=== PATIENT | female | born 1950 | race Caucasian/White ===

== ENCOUNTER 2017-03-04 18:28 | Inpatient (IN) ==
[2017-03-04] MEDS ORDERED: 0.9 % Sodium Chloride 1,000 ML IVC ONE (19:35)
[2017-03-04] MEDS ORDERED: Ondansetron 4 MG/2 ML VIAL IVP ONE (19:35)
[2017-03-04] MEDS ORDERED: *HR* Morphine 2 MG/ML SYRINGE IVP ONE ×2 (19:35→20:35)
--- NOTE | 2017-03-04 19:40 | Emergency Department Note ---
Addendum entered and electronically signed by Collins Layton DO 03/04/17 23:41: Per Hospitalist rec, Will add 1 dose of 1g ceftriaxone, for empiric UTI coverage , urine to go to culture. Original Note: Disposition Clinical Impression: Intractable abdominal pain Abdominal pain Qualifiers: Abdominal location: epigastric Qualified Code(s): R10.13 - Epigastric pain Disposition: Admitted As Inpatient Condition: Fair Time of Disposition: 23:24 Abdominal Pain HPI - General Chief Complaint: ED Abdominal Pain Stated Complaint: pancreatitis Time Seen by Provider: 03/04/17 18:35 Source: patient Mode of arrival: ambulatory Limitations: no limitations Nursing Notes Reviewed: Yes Vital Signs Reviewed: Yes - History of Present Illness HPI Narrative: 67yof hx of pancreatitis, appy/cholecystectomy, with aching, pain epigastric 10 started epigastric radiating to RUQ. She has a history of chronic pancreatitis, she states that her pain is very similar to her previous episodes [place] tightest she states this is previously been secondary to elevated triglycerides, she is no history of alcoholism and currently does not drink, she also denies gallstone pancreatitis but she did previously have a cholecystectomy. Patient denies chest pain, fever, chills, weight loss, hematuria, dysuria. Pt Subjective Complaint: abdominal pain Onset (ago): hour(s) (6) Consistency: now resolved Location: epigastric Pain Severity: severe Pain Scale: 10 Quality: cramping, stabbing, aching Radiation: none Migration to: L flank, R flank Improves with: nothing Worsens with: nothing Associated symptoms: Reports: nausea. Denies: hematemesis, hematochezia - Related Data Home Medications Medication Instructions Recorded Confirmed Gabapentin 600 - 1,200 mg PO HS 07/22/15 07/22/15 NIFEdipine [Nifedical Xl] 30 mg PO HS 07/22/15 07/22/15 Pravastatin Sodium 40 mg PO HS 07/22/15 07/22/15 Trazodone HCl 150 mg PO HS 07/22/15 07/22/15 clonazePAM [Clonazepam] 0.5 mg PO HS 07/22/15 07/22/15 Previous Rx's Medication Instructions Recorded HYDROcodone/Acet 7.5/325 mg [[place] 1 tab PO Q6HR PRN #10 tablet 07/25/15 7.5-325 mg] Allergies Allergy/AdvReac Type Severity Reaction Status Date / Time No Known Allergies Allergy Verified 03/04/17 19:06 All systems ED: reviewed and negative except as stated. Constitutional: Denies: fever, chills Cardiovascular: Denies: chest pain, palpitations Respiratory: Denies: cough, dyspnea Gastrointestinal: Reports: as per HPI, abdominal pain, nausea. Denies: diarrhea , constipation, hematemesis, hematochezia Genitourinary: Denies: urgency, dysuria, hematuria, discharge Musculoskeletal: Reports: as per HPI Neurological: Denies: headache Abdominal Pain PMH - Past Medical History Medical history: Reports: hypertension, kidney stones, seizures, other Female Surgical History: Reports: appendectomy, cholecystectomy, hysterectomy, Tonsillectomy, other ROUSTABOUT CREW history: Reports: no ROUSTABOUT CREW history Psychiatric history: Reports: no psych history - Social History Smoking status: Current every day smoker Alcohol use: Reports: none Drug use: Reports: none Physical Exam Constitutional: alert and oriented, in NAD, tachycardic HEENT: NCAT, sclera anicteric Neck: normal inspection, neck is supple, trachea midline Resp: normal chest inspection, CTA bilaterally, no resp distress CV: tachy, no m/g/r GI: normal inspection,moderate epigastric ttp, no hepatosplenomegaly, previous incisions c/w appy,ginna/hysterectomy, BS x 4 quadrants, negative Dang's Sign , no tenderness at McBurney' point, Negative Rovsing's Back: normal inspection, negative CVA bilaterally, no tenderness to palpation Neuro: A&O3, no gross motor or sensory deficits bilaterally MSK: normal inspection, bilateral UE and LE with normal ROM Skin: No rashes, skin warm, dry, intact - General Limitations: no limitations General appearance: alert Course Course Narrative: 67-year-old female with epigastric abdominal pain, she says this feels like her previous episodes pancreatitis, she states that she has been having some nausea , denies emesis, patient denies any chest pain, her pain radiates to her right upper quadrant, we will give IV fluids antiemetics, check lipase [place] basic lab work troponin is at - Reevaluation(s) Reevaluation #1: After 3 rounds of morphine, unable to the patient's pain adequately under control, started IV fluid drip, 1 L of fluids given, no elevated lipase, no obvious signs of pain [place] on CT scan however the patient still has a moderately tender epigastrium, we will admit to the medicine service given that this is so closely resembling her previous episodes of pancreatitis she likely has chronic pancreatitis, we will admit IV fluids pain, antiemetics, ice chips Time: 23:26 Vital Signs Temperature 97.9 F 03/04/17 19:06 Pulse Rate 98 03/04/17 19:06 Respiratory Rate 20 03/04/17 19:06 Blood Pressure 166/96 03/04/17 19:06 O2 Sat by Pulse Oximetry 96 03/04/17 19:06 Temperature 97.9 F 03/04/17 19:06 Pulse Rate 82 03/04/17 20:42 Respiratory Rate 24 03/04/17 20:42 Blood Pressure 118/79 03/04/17 20:42 O2 Sat by Pulse Oximetry 98 03/04/17 20:42 Oxygen Delivery Oxygen Delivery Room Air Abdominal Pain - MDM Narrative Medical decision making narrative: 67-year-old female with possible pancreatitis, intractable abdominal pain epigastric, admitted to medicine service in stable condition at the time of ED disposition - Differential Diagnosis Differential Diagnosis: Likely: diverticulitis, pancreatitis - Medical Records Medical records reviewed: Yes I reviewed the patient's medical records. - Lab Data Lab results reviewed: Yes I reviewed the patient's lab results. Result diagrams: 03/04/17 19:57 03/04/17 19:57 Lab Results 03/04/17 03/04/17 03/04/17 Range/Units 19:30 19:57 19:57 WBC 9.7 (4.3-11.1) K/mcL RBC 5.05 H (3.82-4.97) M/mcL Hgb 14.5 (11.5-15.4) g/dL Hct 43.4 (35.3-44.9) % MCV 85.9 (83.0-100.0) fL MCH 28.7 (28.0-33.3) pg MCHC 33.4 (31.6-35.5) g/dL RDW 12.9 (11.5-14.5) % Plt Count 328 (140-400) K/mcL MPV 9.7 (9.4-12.4) fL Immature Gran % 0.3 (0-4) % Seg Neutrophils % 63.9 % Lymphocytes % 24.2 % Monocytes % 6.4 % Eosinophils % 4.7 % Basophils % 0.5 % Neutrophils # 6.2 (1.6-8.9) K/mcL Lymphocytes # 2.4 (0.6-4.6) K/mcL Monocytes # 0.6 (0.0-1.3) K/mcL Eosinophils # 0.5 (0.0-0.6) K/mcL Basophils # 0.1 (0.0-0.2) K/mcL Sodium 138 (136-145) mEq/L Potassium 3.7 (3.5-4.5) mEq/L Chloride 106 (98-109) mEq/L Carbon Dioxide 22 (19-29) mEq/L BUN 14 (7-20) mg/dL Creatinine 0.81 (0.57-1.11) mg/dL Est GFR ( Amer) > 60 (> 60) Est GFR (Non-Af Amer) > 60 (> 60) BUN/Creatinine Ratio 17 (6-26) Glucose 104 H (70-99) mg/dL Calculated Osmolality 287 (280-300) Calcium 9.9 (8.6-10.8) mg/dL Total Bilirubin 0.5 (0.2-1.2) mg/dL Direct Bilirubin 0.2 (0.0-0.5) mg/dL Indirect Bilirubin 0.3 (0.0-1.2) mg/dL AST 18 (5-34) Units/L ALT 12 (0-55) Units/L Alkaline Phosphatase 100 (38-126) Units/L Troponin I (0-0.03) ng/mL Serum Total Protein 7.5 (6.0-8.3) g/dL Albumin 3.7 (3.5-5.0) g/dL Globulin 3.8 H (2.4-3.5) g/dL Albumin/Globulin Ratio 1.0 L (1.1-2.2) Lipase 35 (8-78) Units/L Urine Color Dark Yellow (Yellow) Urine Clarity Cloudy A (Clear) Urine pH 6.0 (5.0-8.0) pH Units Ur Specific [place] 1.027 H (1.010-1.025) Urine Protein 30 H (Neg-Trace) mg/dL Urine Glucose (UA) Normal (Normal) mg/dL Urine Ketones 15 H (Negative) mg/dL Urine Blood Small H (Negative) Urine Nitrite Negative (Negative) Urine Bilirubin Small H (Negative) Urine Urobilinogen Normal (Normal) mg/dL Ur Leukocyte Esterase Trace H (Negative) Urine Microscopic RBC 0-3 (0-3) per hpf Urine Microscopic WBC 5-15 H (0-3) per hpf Ur Squamous Epith Cells Many H (None-Few) per lpf Calcium Oxalate Crystal Present Urine Bacteria Moderate H (None-Few) per hpf Hyaline Casts Few (None-Few) per lpf Ur Culture Indicated? YES A (NO) 03/04/17 Range/Units 19:57 WBC (4.3-11.1) K/mcL RBC (3.82-4.97) M/mcL Hgb (11.5-15.4) g/dL Hct (35.3-44.9) % MCV (83.0-100.0) fL MCH (28.0-33.3) pg MCHC (31.6-35.5) g/dL RDW (11.5-14.5) % Plt Count (140-400) K/mcL MPV (9.4-12.4) fL Immature Gran % (0-4) % Seg Neutrophils % % Lymphocytes % % Monocytes % % Eosinophils % % Basophils % % Neutrophils # (1.6-8.9) K/mcL Lymphocytes # (0.6-4.6) K/mcL Monocytes # (0.0-1.3) K/mcL Eosinophils # (0.0-0.6) K/mcL Basophils # (0.0-0.2) K/mcL Sodium (136-145) mEq/L Potassium (3.5-4.5) mEq/L Chloride (98-109) mEq/L Carbon Dioxide (19-29) mEq/L BUN (7-20) mg/dL Creatinine (0.57-1.11) mg/dL Est GFR ( Amer) (> 60) Est GFR (Non-Af Amer) (> 60) BUN/Creatinine Ratio (6-26) Glucose (70-99) mg/dL Calculated Osmolality (280-300) Calcium (8.6-10.8) mg/dL Total Bilirubin (0.2-1.2) mg/dL Direct Bilirubin (0.0-0.5) mg/dL Indirect Bilirubin (0.0-1.2) mg/dL AST (5-34) Units/L ALT (0-55) Units/L Alkaline Phosphatase (38-126) Units/L Troponin I 0.00 (0-0.03) ng/mL Serum Total Protein (6.0-8.3) g/dL Albumin (3.5-5.0) g/dL Globulin (2.4-3.5) g/dL Albumin/Globulin Ratio (1.1-2.2) Lipase (8-78) Units/L Urine Color (Yellow) Urine Clarity (Clear) Urine pH (5.0-8.0) pH Units Ur Specific [place] (1.010-1.025) Urine Protein (Neg-Trace) mg/dL Urine Glucose (UA) (Normal) mg/dL Urine Ketones (Negative) mg/dL Urine Blood (Negative) Urine Nitrite (Negative) Urine Bilirubin (Negative) Urine Urobilinogen (Normal) mg/dL Ur Leukocyte Esterase (Negative) Urine Microscopic RBC (0-3) per hpf Urine Microscopic WBC (0-3) per hpf Ur Squamous Epith Cells (None-Few) per lpf Calcium Oxalate Crystal Urine Bacteria (None-Few) per hpf Hyaline Casts (None-Few) per lpf Ur Culture Indicated? (NO) - Radiology Data Radiology results reviewed: Yes I reviewed the patient's radiology results. Abdomen/Pelvis CT 03/04/17 21:35 IMPRESSION: 1. Nonobstructing stone in the right kidney. 2. Trace right pleural effusion. D/ / Calderon Topete MD / Calderon Topete MD Interpreting Provider: Calderon Topete MD - EKG Data EKG attestation: Yes I reviewed and interpreted this EKG. EKG shows normal: sinus rhythm (97 bpm [place] 149 QRS 73 QTC [address] segment elevations or depressions,) Rate: normal Interpretation: no acute changes - Core Measures AMI Core Measures Followed: No Attestation Statement - Attestation Attestation: I examined this patient and my medical decision-making was reviewed with the Resident Physician. I agree with the documented findings, disposition and treatment plan as described except to the extent set forth below. Tender without guarding. Lipase normal, CT normal, VSS, but continued pain despite 3 doses of Morphine. Hospitalist accepts for admission.
[2017-03-04 19:46] LABS: Bilirubin,Urine Small (Negative); Blood,Urine Small (Negative); Clarity,Urine Cloudy (Clear); Color,Urine Dark Yellow (Yellow); Glucose,Urine (UA) Normal (Normal); Ketones,Urine 15 mg/dL (Negative); Leukocyte Esterase,Urine Trace (Negative); Nitrite,Urine Negative (Negative); Protein,Urine 30 mg/dL (Neg-Trace); Specific Gravity,Urine 1.027 (1.010-1.025); Urobilinogen,Urine Normal (Normal)
[2017-03-04 19:49] LABS: Bacteria,Urine Moderate per hpf (None-Few); RBC,Urine 0-3 per hpf (0-3); Squamous Epithelial Cell,Urine Many per lpf (None-Few)
[2017-03-04 19:59] LABS: Hyaline Casts,Urine Few per lpf (None-Few)
[2017-03-04 20:00] LABS: Calcium Oxalate Crystals,Urine Present
[2017-03-04 20:06] LABS: Basophils # 0.1 K/mcL (0.0-0.2); Basophils % 0.5 %; Eosinophils # 0.5 K/mcL (0.0-0.6); Eosinophils % 4.7 %; Hematocrit 43.4 % (35.3-44.9); Hemoglobin 14.5 g/dL (11.5-15.4); Immature Granulocytes % 0.3 % (0-4); Lymphocytes # 2.4 K/mcL (0.6-4.6); Lymphocytes % 24.2 %; Mean Corpuscular HGB Conc 33.4 g/dL (31.6-35.5); Mean Corpuscular Hemoglobin 28.7 pg (28.0-33.3); Mean Corpuscular Volume 85.9 fL (83.0-100.0); Mean Platelet Volume 9.7 fL (9.4-12.4); Monocytes # 0.6 K/mcL (0.0-1.3); Monocytes % 6.4 %; Neutrophils # 6.2 K/mcL (1.6-8.9); Platelet Count 328 K/mcL (140-400); Red Blood Count 5.05 M/mcL (3.82-4.97); Red Cell Distribution Width 12.9 % (11.5-14.5); Segmented Neutrophils % 63.9 %
[2017-03-04 20:26] LABS: Alanine Aminotransferase 12 Units/L (0-55); Albumin 3.7 g/dL (3.5-5.0); Alkaline Phosphatase 100 Units/L (38-126); Aspartate Amino Transferase 18 Units/L (5-34); BUN/Creatinine Ratio 17 (6-26); Bilirubin,Direct 0.2 mg/dL (0.0-0.5); Bilirubin,Indirect 0.3 mg/dL (0.0-1.2); Bilirubin,Total 0.5 mg/dL (0.2-1.2); Blood Urea Nitrogen 14 mg/dL (7-20); Calcium 9.9 mg/dL (8.6-10.8); Carbon Dioxide 22 mEq/L (19-29); Chloride 106 mEq/L (98-109); Globulin 3.8 g/dL (2.4-3.5); Glucose 104 mg/dL (70-99); Lipase 35 Units/L (8-78); Osmolality,Calculated 287 (280-300); Potassium 3.7 mEq/L (3.5-4.5); Sodium 138 mEq/L (136-145); Total Protein 7.5 g/dL (6.0-8.3); eGFR For African Americans > 60 (> 60); eGFR For Non-African Americans > 60 (> 60)
[2017-03-04] MEDS ORDERED: *HR* Morphine 2 MG/ML SYRINGE IVP STA (22:36)
[2017-03-04] MEDS: 0.9 % Sodium Chloride 1,000 ML IVC SCH (22:44)
[2017-03-05] MEDS ORDERED: Pantoprazole 40 MG VIAL IVP ONE (02:37)
[2017-03-05] MEDS ORDERED: *HR* HYDROmorphone (PF) 1 MG/ML SYRINGE IVP ONE (02:39)
[2017-03-05] MEDS ORDERED: Naloxone 0.4 MG/ML INJ IVP PRN (02:52)
--- NOTE | 2017-03-05 02:52 | Internal Med History&Physical ---
Date of Encounter: 03/05/17 Time of Encounter: 02:52 Assessment and Plan (1) Epigastric abdominal pain Current visit: Yes Status: Acute Epigastric abdominal pain - suspect gastritis. Treat with PPI. Labs and imaging do not suggest acute pancreatitis and no conclusive evidence for chronic pancreatitis (No pancreatic calcifications or atrophy reported; Pt has no h/o chronic diarrhea). Will request GI consult for further advice. Emperically treat with PPI and analgesia. NPO for now (2) UTI (urinary tract infection) Current visit: Yes Status: Suspected Empirically treated with ceftriaxone. Urine cultures pending. Titrate antibiotics based on cultures / sensitivities Qualifiers: Urinary tract infection type: site unspecified Hematuria presence: without hematuria Qualified Code(s): N39.0 - Urinary tract infection, site not specified (3) Nicotine dependence Current visit: Yes Status: Chronic Pt does not want nicotine patch Qualifiers: Nicotine product type: cigarettes Substance use status: unspecified nicotine-induced disorder Qualified Code(s): F17.219 - Nicotine dependence, cigarettes, with unspecified nicotine-induced disorders (4) HTN (hypertension) Current visit: Yes Status: Chronic Continue home medications Qualifiers: Hypertension type: essential hypertension Qualified Code(s): I10 - Essential (primary) hypertension (5) DVT prophylaxis Current visit: Yes Status: Acute SCDs Internal Medicine - H&P: HPI Chief complaint: Epigastric pain Admitted From: Emergency Dept Plans for Post Hospital Care: Home History of present illness: Ms. Dalal is a 67 year old female With h/o Hypertension, ruptured intracranial aneurysm, s/p cholecystectomy. She has a diagnosis of chronic pancreatitis (but the current imaging does not reports changes of chronic pancreatitis) and prior admissions for acute pancreatitis. She presented to the ER, with h/o sudden onset of sharp epigastric abdominal pain, starting at about 1 PM on 03/04/2017. Pain radiates to the back, severe and associated with nausea but no vomiting. She reports about 7 episodes of diarrhea, but no melena or hematochezia. She denies Chest pain, shortness of breath, Cough, fever, dysuria, hematuria. She was evaluated in the ER and CT Abdomen and pelvis showed non obstructing stone in the right kidney. Lipase was normal. UA was abnormal and was given ceftriaxone, IV fluids and admitted to the hospitalist service for further management. Past Med Surg Social Fam HX - Past Medical History Medical history: hypertension, kidney stones, seizures, other Psychiatric history: no psych history - Past Surgical History Surgical History: appendectomy, cholecystectomy, hysterectomy - Social History Smoking Status: Current every day smoker Packs per day: 0.5 Smokeless Tobacco Status: No Alcohol use: none Drug use: none - Family History Mother Living Status: Hx Family Cardiac Disorders: Yes (Heart attack) Hx Family Neurologic Disorders: Yes (Alzhmier's) Father Living Status: Unknown - Additional Family History Additional family history: Denies family h/o chronic pancreatitis Internal Medicine - H&P: Meds Gabapentin 600 - 1,200 mg PO HS 07/22/15 [History] NIFEdipine [Nifedical Xl] 30 mg PO HS 07/22/15 [History] Pravastatin Sodium 40 mg PO HS 07/22/15 [History] Trazodone HCl 150 mg PO HS 07/22/15 [History] clonazePAM [Clonazepam] 0.5 mg PO HS 07/22/15 [History] HYDROcodone/Acet 7.5/325 mg [[place] 7.5-325 mg] 1 tab PO Q6HR PRN #10 tablet 09/08 [Rx] Allergies No Known Allergies Allergy (Verified 03/04/17 19:06) All Systems PM: A 10-system review of systems was performed and is negative for pertinent findings except as documented above in the HPI. - Constitutional Vitals: Temp Pulse Resp BP Pulse Ox 98.3 F 88 15 141/69 94 03/05/17 01:04 03/05/17 01:04 03/05/17 01:04 03/05/17 01:04 03/05/17 01:04 Exam: General: In mild distress at the time of my evaluation HEENT: Oral mucosa is moist. No conjunctival palor or scleral icterus Neck: No obvious neck swellings Lungs: Clear to auscultation Cardiac: Regular rate and rhythm. No significant murmurs Abdomen: Epigastric tenderness present. Bowel sounds present Genitourinary: No ayala catheter Neurological: Alert and oriented. No gross localizing deficits Psych: Not aggressive or agitated Extremities: no significant leg edema Skin: No generalized rash Internal Med - H&P Results - Labs CBC & Chem 7: 03/04/17 19:57 03/04/17 19:57 - EKG Data -: EKG Interpreted by Myself EKG shows normal: sinus rhythm - EKG Data EKG comments: Left atrial enlargement 03/05/17 03:47 - Impressions ITS Impressions Abdomen/Pelvis CT 03/04/17 21:35 IMPRESSION: 1. Nonobstructing stone in the right kidney. 2. Trace right pleural effusion. D/ / Calderon Topete MD / Calderon Topete MD Interpreting Provider: Calderon Topete MD
[2017-03-05] MEDS ORDERED: Acetaminophen 325 MG TABLET PO PRN (02:55)
[2017-03-05] MEDS: *HR* Morphine 2 MG/ML SYRINGE IVP PRN ×3 (04:15→12:28)
[2017-03-05] MEDS: *HR* HYDROmorphone (PF) 1 MG/ML SYRINGE IVP PRN ×4 (06:15→23:04)
[2017-03-05 06:21] LABS: BUN/Creatinine Ratio 13 (6-26); Blood Urea Nitrogen 10 mg/dL (7-20); Calcium 8.8 mg/dL (8.6-10.8); Carbon Dioxide 23 mEq/L (19-29); Chloride 110 mEq/L (98-109); Chol/HDL Ratio 4.5 (0-4.9); Cholesterol 150 mg/dL (< 200); Glucose 138 mg/dL (70-99); HDL Cholesterol 33 mg/dL (40-59); LDL Cholesterol,Calculated 90 mg/dL (0-99); Osmolality,Calculated 289 (280-300); Potassium 3.7 mEq/L (3.5-4.5); Sodium 139 mEq/L (136-145); Triglycerides 137 mg/dL (< 150); eGFR For African Americans > 60 (> 60); eGFR For Non-African Americans > 60 (> 60)
[2017-03-05 06:53] LABS: Lipase 2440 Units/L (8-78)
--- NOTE | 2017-03-05 08:10 | Internal Med Progress Note ---
<Naveed Way - Last Filed: 03/05/17 09:27> Date of Encounter: 03/05/17 Time of Encounter: 08:09 - Assessment and plan (1) Acute pancreatitis Current Visit: No Status: Acute Assessment and plan: Acute Pancreatitis with elevated lipase 2440. Patient has multiple episodes of acute pancreatitis in the past. Patient reports drinking alcohol 1 week ago. Continue IV fluids and pain control. Nothing by mouth. Continue PPI. GI consulted for possible gastritis Qualifiers: Pancreatitis type: unspecified pancreatitis type Qualified Code(s): K85.90 - Acute pancreatitis without necrosis or infection, unspecified (2) Epigastric abdominal pain Current Visit: Yes Status: Acute Assessment and plan: See above. Patient denies history of hepatitis (3) UTI (urinary tract infection) Current Visit: Yes Status: Suspected Assessment and plan: Continue Rocephin (day 2) Qualifiers: Urinary tract infection type: site unspecified Hematuria presence: without hematuria Qualified Code(s): N39.0 - Urinary tract infection, site not specified (4) Nicotine dependence Current Visit: Yes Status: Chronic Assessment and plan: Discussed tobacco cessation. Patient declines nicotine patch Qualifiers: Nicotine product type: cigarettes Substance use status: unspecified nicotine-induced disorder Qualified Code(s): F17.219 - Nicotine dependence, cigarettes, with unspecified nicotine-induced disorders (5) HTN (hypertension) Current Visit: Yes Status: Chronic Assessment and plan: Continue home antihypertensive treatment Qualifiers: Hypertension type: essential hypertension Qualified Code(s): I10 - Essential (primary) hypertension (6) DVT prophylaxis Current Visit: No Status: Acute Assessment and plan: SCDs Patient seen and examined, plan discussed with and agreed upon with Dr. Kim - Subjective Interval history: Patient resting comfortably in bed. Patient reports 9 out of 10 severity epigastric pain despite taking Dilaudid and morphine. Nausea is controlled. Patient denies fevers, chills, chest pain, vomiting, diarrhea, or any new complaints. - Constitutional Vitals: Temp Pulse Resp BP Pulse Ox 97.9 F 80 13 146/69 94 03/05/17 07:54 03/05/17 07:54 03/05/17 07:54 03/05/17 07:54 03/05/17 07:54 General appearance: Present: cooperative, disheveled, mild distress, A&O X 3, pleasant, answers questions appropriately - Head Head exam: Present: atraumatic, normocephalic - Eye Eye exam: Present: PERRL, conjuntiva pink, sclera anicteric Pupils: Present: PERRL - ENT ENT exam: Present: mucous membranes moist, normal oropharynx - Neck Neck exam general surgery: Present: supple, trachea midline. Absent: lymphadenopathy - Respiratory Respiratory exam: Present: wheezes (Mild expiratory). Absent: accessory muscle use, rales, respiratory distress, rhonchi - Cardiovascular Cardiovascular exam: Present: RRR, +S1, +S2. Absent: diastolic murmur, gallop, rubs, systolic murmur - GI/Abdominal GI/Abdominal exam: Present: guarding, normal bowel sounds, soft, tenderness, no peritoneal signs. Absent: distended, rebound Additional comments: Moderate epigastric tenderness with light and deep palpation. Positive voluntary guarding - Extremities Exam Extremities exam: Present: warm, radial pulses palpable and symetrical. Absent : calf tenderness, cyanotic, pedal edema - Neurological Exam Neurological exam: Present: CN II-XII intact, oriented X3, no focal deficits. Absent: pronater drift, facial droop, speech deficit - Psychiatric Psychiatric exam: Present: anxious, normal mood - Skin Skin exam: Present: dry, intact, pallor, warm. Absent: rash Internal Medicine: Result - Labs CBC & Chem 7: 03/04/17 19:57 03/05/17 05:52 Labs: BMP 03/05/17 05:52 Sodium 139 Potassium 3.7 Chloride 110 H Carbon Dioxide 23 BUN 10 Creatinine 0.77 Glucose 138 H Calcium 8.8 Consult Discharge Plan - Plan Referrals: Nanette Jacobson MD [Primary Care Provider] - (web request sent on 03/05/17) <Gilbert Hickman H - Last Filed: 03/05/17 13:40> Date of Encounter: 03/05/17 - Constitutional Vitals: Temp Pulse Resp BP Pulse Ox 98.0 F 71 18 137/66 96 03/05/17 10:49 03/05/17 10:49 03/05/17 10:49 03/05/17 10:49 03/05/17 10:49 Internal Medicine: Result - Labs CBC & Chem 7: 03/05/17 11:47 03/05/17 05:52 Labs: Short CBC 03/05/17 Range/Units 11:47 WBC 8.5 (4.3-11.1) K/mcL Hgb 12.3 D (11.5-15.4) g/dL Hct 36.0 (35.3-44.9) % Plt Count 267 (140-400) K/mcL Neutrophils # 5.9 (1.6-8.9) K/mcL BMP 03/05/17 05:52 Sodium 139 Potassium 3.7 Chloride 110 H Carbon Dioxide 23 BUN 10 Creatinine 0.77 Glucose 138 H Calcium 8.8 - Attending Attestation Acute pancreatitis unknown etiology Increase IV fluids to 200 mL/h, increased dose of Dilaudid IV Discontinue lisinopril Keep nothing by mouth Discontinue Rocephin, the patient is not having any urinary symptoms I examined this patient and my medical decision-making was reviewed with the [employer] TECHNICIAN/PA/Advanced Practice Nurse/Resident Physician. I agree with the documented findings, disposition and treatment plan as described except to the extent set forth below.
[2017-03-05] MEDS: Gabapentin 300 MG CAPSULE PO SCH ×2 (09:23→20:57)
[2017-03-05] MEDS: Pantoprazole 40 MG VIAL IVP SCH (09:23)
[2017-03-05] MEDS: 0.9 % Sodium Chloride 1,000 ML IVC SCH ×3 (10:26→23:01)
--- NOTE | 2017-03-05 11:37 | Electrocardiograph Report ---
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
[2017-03-05 12:24] LABS: Basophils % 0.2 %; Eosinophils # 0.1 K/mcL (0.0-0.6); Eosinophils % 1.5 %; Immature Granulocytes % 0.2 % (0-4); Lymphocytes # 1.9 K/mcL (0.6-4.6); Lymphocytes % 21.7 %; Mean Corpuscular HGB Conc 34.2 g/dL (31.6-35.5); Mean Corpuscular Hemoglobin 29.8 pg (28.0-33.3); Mean Corpuscular Volume 87.2 fL (83.0-100.0); Mean Platelet Volume 10.8 fL (9.4-12.4); Monocytes # 0.6 K/mcL (0.0-1.3); Monocytes % 6.7 %; Neutrophils # 5.9 K/mcL (1.6-8.9); Platelet Count 267 K/mcL (140-400); Red Blood Count 4.13 M/mcL (3.82-4.97); Red Cell Distribution Width 12.9 % (11.5-14.5); Segmented Neutrophils % 69.7 %
[2017-03-05 12:25] LABS: Hemoglobin 12.3 g/dL (11.5-15.4)
[2017-03-05] MEDS ORDERED: 0.9 % Sodium Chloride 1,000 ML IVC SCH (13:30)
[2017-03-05] MEDS ORDERED: Ondansetron 4 MG/2 ML VIAL ONE (18:27)
[2017-03-05] MEDS: clonazePAM 0.5 MG TABLET PO SCH (20:57)
[2017-03-05] MEDS: traZODone 50 MG TABLET PO SCH (20:58)
[2017-03-05] MEDS: NIFEdipine XL (24 HR) 30 MG TAB.ER.24 PO SCH (20:58)
[2017-03-06 06:34] LABS: Basophils % 0.5 %; Eosinophils # 0.3 K/mcL (0.0-0.6); Eosinophils % 3.1 %; Hemoglobin 13.1 g/dL (11.5-15.4); Immature Granulocytes % 0.2 % (0-4); Lymphocytes # 1.6 K/mcL (0.6-4.6); Lymphocytes % 19.4 %; Mean Corpuscular Hemoglobin 28.6 pg (28.0-33.3); Mean Corpuscular Volume 89.5 fL (83.0-100.0); Mean Platelet Volume 11.6 fL (9.4-12.4); Monocytes # 0.4 K/mcL (0.0-1.3); Monocytes % 5.3 %; Neutrophils # 5.8 K/mcL (1.6-8.9); Platelet Count 272 K/mcL (140-400); Red Blood Count 4.58 M/mcL (3.82-4.97); Red Cell Distribution Width 12.8 % (11.5-14.5); Segmented Neutrophils % 71.5 %
[2017-03-06 06:49] LABS: BUN/Creatinine Ratio 9 (6-26); Blood Urea Nitrogen 6 mg/dL (7-20); Calcium 8.5 mg/dL (8.6-10.8); Carbon Dioxide 16 mEq/L (19-29); Chloride 111 mEq/L (98-109); Glucose 64 mg/dL (70-99); Osmolality,Calculated 284 (280-300); Potassium 3.3 mEq/L (3.5-4.5); Sodium 139 mEq/L (136-145); eGFR For African Americans > 60 (> 60); eGFR For Non-African Americans > 60 (> 60)
--- NOTE | 2017-03-06 08:55 | Internal Med Progress Note ---
<Naveed Way - Last Filed: 03/06/17 08:53> Date of Encounter: 03/06/17 Time of Encounter: 08:53 - Assessment and plan (1) Acute pancreatitis Current Visit: No Status: Acute Assessment and plan: Unknown etiology of Acute Pancreatitis with elevated lipase 2440. Patient has multiple episodes of acute pancreatitis in the past. Patient reports drinking alcohol 1 week ago. Continue IV fluids and pain control. Advance diet to clear liquids. Continue Dilaudid and morphine when necessary for pain. Continue PPI. Discontinue lisinopril Qualifiers: Pancreatitis type: unspecified pancreatitis type Qualified Code(s): K85.90 - Acute pancreatitis without necrosis or infection, unspecified (2) Epigastric abdominal pain Current Visit: Yes Status: Acute Assessment and plan: See above. Patient denies history of hepatitis (3) Nicotine dependence Current Visit: Yes Status: Chronic Qualifiers: Nicotine product type: cigarettes Substance use status: unspecified nicotine-induced disorder Qualified Code(s): F17.219 - Nicotine dependence, cigarettes, with unspecified nicotine-induced disorders (4) HTN (hypertension) Current Visit: Yes Status: Chronic Assessment and plan: Discontinue lisinopril secondary to recurrent pancreatitis. Continue nifedipine Qualifiers: Hypertension type: essential hypertension Qualified Code(s): I10 - Essential (primary) hypertension (5) DVT prophylaxis Current Visit: No Status: Acute Assessment and plan: SCDs Patient seen and examined, plan discussed with and agreed upon with Dr. Kim - Subjective Interval history: Patient resting comfortably in bed. Patient reports 3 out of 10 severity epigastric pain on Dilaudid and morphine. Nausea is controlled. Patient request advancing diet and denies fevers, chills, chest pain, active vomiting, diarrhea, or any new complaints. - Constitutional Vitals: Temp Pulse Resp BP Pulse Ox 97.9 F 99 14 127/71 95 03/06/17 07:14 03/06/17 07:14 03/06/17 07:14 03/06/17 07:14 03/06/17 07:14 General appearance: Present: cooperative, disheveled, mild distress, A&O X 3, pleasant, answers questions appropriately Exam: Afebrile - Head Head exam: Present: atraumatic, normocephalic - Eye Eye exam: Present: PERRL, conjuntiva pink, sclera anicteric Pupils: Present: PERRL - ENT ENT exam: Present: mucous membranes dry, normal oropharynx - Neck Neck exam general surgery: Present: supple, trachea midline. Absent: lymphadenopathy - Respiratory Respiratory exam: Present: CTAB. Absent: accessory muscle use, rales, rhonchi, wheezes - Cardiovascular Cardiovascular exam: Present: RRR, +S1, +S2. Absent: diastolic murmur, gallop, rubs, systolic murmur - GI/Abdominal GI/Abdominal exam: Present: guarding (Voluntary), normal bowel sounds, soft, tenderness (Epigastric), no peritoneal signs. Absent: distended - Extremities Exam Extremities exam: Present: normal inspection, warm, radial pulses palpable and symetrical. Absent: calf tenderness, cyanotic, pedal edema - Neurological Exam Neurological exam: Present: CN II-XII intact, oriented X3, no focal deficits. Absent: pronater drift, facial droop, speech deficit - Psychiatric Psychiatric exam: Present: normal affect, normal mood - Skin Skin exam: Present: dry, intact Internal Medicine: Result - Labs CBC & Chem 7: 03/06/17 04:13 03/06/17 04:13 Consult Discharge Plan - Plan Referrals: Nanette Jacobson MD [Primary Care Provider] - (web request sent on 03/05/17) <Gilbert Hickman Jorge - Last Filed: 03/06/17 11:55> Date of Encounter: 03/06/17 - Constitutional Vitals: Temp Pulse Resp BP Pulse Ox 98.9 F 99 16 135/66 94 03/06/17 11:29 03/06/17 11:29 03/06/17 11:29 03/06/17 11:29 03/06/17 11:29 Internal Medicine: Result - Labs CBC & Chem 7: 03/06/17 04:13 03/06/17 04:13 - Attending Attestation Start clear liquids today, decreased IV fluids to 100 mL of normal saline per hour May advance her diet to full liquids later if continues to improve I examined this patient and my medical decision-making was reviewed with the AUTOMATED WEAVER/PA/Advanced Practice Nurse/Resident Physician. I agree with the documented findings, disposition and treatment plan as described except to the extent set forth below.
[2017-03-06] MEDS: Gabapentin 300 MG CAPSULE PO SCH ×2 (09:10→21:08)
[2017-03-06] MEDS: Ondansetron 4 MG/2 ML VIAL IVP PRN ×3 (09:11→21:04)
[2017-03-06] MEDS: Pantoprazole 40 MG VIAL IVP SCH (09:11)
[2017-03-06] MEDS: 0.9 % Sodium Chloride 1,000 ML IVC SCH ×2 (09:27→23:54)
[2017-03-06] MEDS ORDERED: *HR* Promethazine 25 MG/ML VIAL IVP PRN (11:55)
[2017-03-06] MEDS: *HR* HYDROmorphone (PF) 1 MG/ML SYRINGE IVP PRN ×3 (12:26→21:06)
[2017-03-06 14:57] LABS: Lipase 80 Units/L (8-78); Magnesium 1.5 mg/dL (1.6-2.6)
[2017-03-06] MEDS ORDERED: Magnesium Sulfate 2 GM in D5% in Water 100 ML IVPB ONE (16:46)
[2017-03-06] MEDS: clonazePAM 0.5 MG TABLET PO SCH (21:08)
[2017-03-06] MEDS: NIFEdipine XL (24 HR) 30 MG TAB.ER.24 PO SCH (21:08)
[2017-03-06] MEDS: traZODone 50 MG TABLET PO SCH (21:08)
[2017-03-07] MEDS: *HR* HYDROmorphone (PF) 1 MG/ML SYRINGE IVP PRN ×2 (05:10→10:23)
[2017-03-07] MEDS: Ondansetron 4 MG/2 ML VIAL IVP PRN ×2 (05:10→10:23)
[2017-03-07 06:46] LABS: Hematocrit 36.3 % (35.3-44.9); Hemoglobin 12.4 g/dL (11.5-15.4); Mean Corpuscular HGB Conc 34.2 g/dL (31.6-35.5); Mean Corpuscular Hemoglobin 29.7 pg (28.0-33.3); Mean Corpuscular Volume 86.8 fL (83.0-100.0); Mean Platelet Volume 10.8 fL (9.4-12.4); Platelet Count 272 K/mcL (140-400); Red Blood Count 4.18 M/mcL (3.82-4.97); Red Cell Distribution Width 12.6 % (11.5-14.5)
[2017-03-07 06:48] LABS: Carbon Dioxide 24 mEq/L (19-29); Chloride 105 mEq/L (98-109); Potassium 3.2 mEq/L (3.5-4.5); Sodium 137 mEq/L (136-145)
[2017-03-07 06:49] LABS: Alanine Aminotransferase 75 Units/L (0-55); Albumin/Globulin Ratio 0.9 (1.1-2.2); Alkaline Phosphatase 122 Units/L (38-126); Aspartate Amino Transferase 39 Units/L (5-34); BUN/Creatinine Ratio 5 (6-26); Bilirubin,Total 0.6 mg/dL (0.2-1.2); Calcium 8.3 mg/dL (8.6-10.8); Globulin 3.3 g/dL (2.4-3.5); Glucose 98 mg/dL (70-99); Osmolality,Calculated 281 (280-300); Total Protein 6.2 g/dL (6.0-8.3); eGFR For African Americans > 60 (> 60); eGFR For Non-African Americans > 60 (> 60)
[2017-03-07 06:50] LABS: Albumin 2.9 g/dL (3.5-5.0); Blood Urea Nitrogen 3 mg/dL (7-20)
--- NOTE | 2017-03-07 08:19 | Internal Med Progress Note ---
<Naveed Way - Last Filed: 03/07/17 13:47> Date of Encounter: 03/07/17 Time of Encounter: 08:19 - Assessment and plan (1) Acute pancreatitis Current Visit: No Status: Acute Assessment and plan: Unknown etiology of Acute Pancreatitis, decreased lipase from 2440 to 80. Patient has multiple episodes of acute pancreatitis in the past. Patient reports drinking alcohol 1 week ago. Continue IV fluids and pain control. Patient tolerating clear liquids. Advance diet to full liquids. Continue Dilaudid and morphine when necessary for pain. Continue PPI. Discontinued lisinopril Qualifiers: Pancreatitis type: unspecified pancreatitis type Qualified Code(s): K85.90 - Acute pancreatitis without necrosis or infection, unspecified (2) Epigastric abdominal pain Current Visit: Yes Status: Acute Assessment and plan: See above. May need repeat CT scan if symptoms worsen to rule out pancreatic necrosis. Patient denies history of hepatitis (3) Nicotine dependence Current Visit: Yes Status: Chronic Assessment and plan: Discussed tobacco cessation. Patient declines nicotine patch Qualifiers: Nicotine product type: cigarettes Substance use status: unspecified nicotine-induced disorder Qualified Code(s): F17.219 - Nicotine dependence, cigarettes, with unspecified nicotine-induced disorders (4) HTN (hypertension) Current Visit: Yes Status: Chronic Assessment and plan: Discontinue lisinopril secondary to recurrent pancreatitis. Continue nifedipine Qualifiers: Hypertension type: essential hypertension Qualified Code(s): I10 - Essential (primary) hypertension (5) DVT prophylaxis Current Visit: No Status: Acute Assessment and plan: SCDs. Encourage ambulation. Patient seen and examined, plan discussed with and agreed upon with Dr. Crane - Subjective Interval history: Patient resting comfortably in bed. Patient reports 3 out of 10 severity epigastric pain on Dilaudid and morphine. Nausea is controlled and patient requests advancing diet for liquids. Patient denies fevers, chills, chest pain , vomiting, diarrhea, or any new complaints. - Constitutional Vitals: Temp Pulse Resp BP Pulse Ox 98.6 F 82 13 115/65 94 03/07/17 07:32 03/07/17 07:32 03/07/17 07:32 03/07/17 07:32 03/07/17 07:32 General appearance: Present: cooperative, disheveled, mild distress, A&O X 3, pleasant, answers questions appropriately - Head Head exam: Present: atraumatic, normocephalic - Eye Eye exam: Present: PERRL, conjuntiva pink, sclera anicteric Pupils: Present: PERRL - ENT ENT exam: Present: mucous membranes moist, normal oropharynx - Neck Neck exam general surgery: Present: supple, trachea midline. Absent: lymphadenopathy - Respiratory Respiratory exam: Present: CTAB. Absent: accessory muscle use, rales, rhonchi, wheezes - Cardiovascular Cardiovascular exam: Present: RRR, +S1, +S2. Absent: diastolic murmur, gallop, rubs, systolic murmur - GI/Abdominal GI/Abdominal exam: Present: guarding (Voluntary), normal bowel sounds, soft, tenderness, no peritoneal signs. Absent: distended Additional comments: Epigastric - Extremities Exam Extremities exam: Present: warm, radial pulses palpable and symetrical. Absent : calf tenderness, cyanotic, pedal edema - Neurological Exam Neurological exam: Present: CN II-XII intact, oriented X3, no focal deficits. Absent: pronater drift, facial droop, speech deficit - Psychiatric Psychiatric exam: Present: normal affect, normal mood - Skin Skin exam: Present: dry, intact, warm Internal Medicine: Result - Labs CBC & Chem 7: 03/07/17 06:04 03/07/17 06:04 Labs: Short CBC 03/07/17 Range/Units 06:04 WBC 7.8 (4.3-11.1) K/mcL Hgb 12.4 (11.5-15.4) g/dL Hct 36.3 (35.3-44.9) % Plt Count 272 (140-400) K/mcL BMP 03/07/17 06:04 Sodium 137 Potassium 3.2 L Chloride 105 Carbon Dioxide 24 BUN 3 L Creatinine 0.64 Glucose 98 Calcium 8.3 L Liver Function 03/07/17 Range/Units 06:04 Total Bilirubin 0.6 (0.2-1.2) mg/dL AST 39 H (5-34) Units/L ALT 75 H (0-55) Units/L Alkaline Phosphatase 122 (38-126) Units/L Albumin 2.9 L D (3.5-5.0) g/dL Consult Discharge Plan - Plan Referrals: Nanette Jacobson MD [Primary Care Provider] - 03/11/17 10:30 am (web request sent on 03/05/17) <Carlton Crane Dhruv - Last Filed: 03/07/17 18:05> Date of Encounter: 03/07/17 - Assessment and plan (1) Pancreatitis Current Visit: No Status: Suspected Assessment and plan: Presumed due to Lisinopril which has been stopped. Qualifiers: Chronicity: acute Pancreatitis type: drug induced Acute pancreatitis complication: no infection or necrosis Qualified Code(s): K85.30 - Drug induced acute pancreatitis without necrosis or infection (2) Epigastric abdominal pain Current Visit: Yes Status: Acute (3) HTN (hypertension) Current Visit: Yes Status: Chronic Qualifiers: Hypertension type: essential hypertension Qualified Code(s): I10 - Essential (primary) hypertension (4) Hypokalemia Current Visit: No Status: Acute Assessment and plan: Replete today. (5) Nicotine dependence Current Visit: Yes Status: Chronic Qualifiers: Nicotine product type: cigarettes Substance use status: unspecified nicotine-induced disorder Qualified Code(s): F17.219 - Nicotine dependence, cigarettes, with unspecified nicotine-induced disorders - Constitutional Vitals: Temp Pulse Resp BP Pulse Ox 99.2 F 80 17 132/79 94 03/07/17 16:35 03/07/17 16:35 03/07/17 16:35 03/07/17 16:35 03/07/17 16:35 Internal Medicine: Result - Labs CBC & Chem 7: 03/07/17 06:04 03/07/17 06:04 Labs: Short CBC 03/07/17 Range/Units 06:04 WBC 7.8 (4.3-11.1) K/mcL Hgb 12.4 (11.5-15.4) g/dL Hct 36.3 (35.3-44.9) % Plt Count 272 (140-400) K/mcL BMP 03/07/17 06:04 Sodium 137 Potassium 3.2 L Chloride 105 Carbon Dioxide 24 BUN 3 L Creatinine 0.64 Glucose 98 Calcium 8.3 L Liver Function 03/07/17 Range/Units 06:04 Total Bilirubin 0.6 (0.2-1.2) mg/dL AST 39 H (5-34) Units/L ALT 75 H (0-55) Units/L Alkaline Phosphatase 122 (38-126) Units/L Albumin 2.9 L D (3.5-5.0) g/dL - Attending Attestation I examined this patient and my medical decision-making was reviewed with the Resident Physician on 03/07/17. I agree with the documented findings, disposition and treatment plan as described except to the extent set forth below. Ms. Dalal is currently admitted for acute pancreatitis. She remains moderate to high risk due to potential for worsening clinical status and pancreatic complications. Ms. Dalal was up walking some earlier today. She also had a shower. She has had some recurrence of some R side pain when up and moving. No fever or chills. Tolerating current diet. No diarrhea. Pain is controlled at this point in time. Exam Alert. Comfortable resting in bed Mucus membranes moist Heart reg - not tachy Lungs clear Abd with some discomfort R upper abdomen - no peritoneal signs. No edema Labs reviewed I/P 1. Acute pancreatitis - slowly improving. Continue pain control. Advance diet. Increase activity. 2. HTN 3. Tobacco abuse - cessation counselling. Further diagnoses and plan as above BP appears to be OK without Lisinopril. ? if cause of pancreatitis.
[2017-03-07] MEDS: Gabapentin 300 MG CAPSULE PO SCH ×2 (08:53→21:08)
[2017-03-07] MEDS: Pantoprazole 40 MG VIAL IVP SCH (08:54)
[2017-03-07 08:57] LABS: Magnesium 1.6 mg/dL (1.6-2.6)
[2017-03-07] MEDS ORDERED: Magnesium Sulfate 1 GM in D5% in Water 100 ML IVPB ONE (09:44)
[2017-03-07] MEDS: 0.9 % Sodium Chloride 1,000 ML IVC SCH (10:30)
[2017-03-07] MEDS: traZODone 50 MG TABLET PO SCH (21:07)
[2017-03-07] MEDS: NIFEdipine XL (24 HR) 30 MG TAB.ER.24 PO SCH (21:08)
[2017-03-07] MEDS: clonazePAM 0.5 MG TABLET PO SCH (21:08)
[2017-03-08] MEDS: 0.9 % Sodium Chloride 1,000 ML IVC SCH (01:09)
[2017-03-08 07:36] LABS: Alanine Aminotransferase 60 Units/L (0-55); Albumin/Globulin Ratio 0.7 (1.1-2.2); Alkaline Phosphatase 124 Units/L (38-126); BUN/Creatinine Ratio 3 (6-26); Bilirubin,Total 0.6 mg/dL (0.2-1.2); Calcium 8.9 mg/dL (8.6-10.8); Carbon Dioxide 27 mEq/L (19-29); Chloride 104 mEq/L (98-109); Globulin 4.1 g/dL (2.4-3.5); Glucose 88 mg/dL (70-99); Osmolality,Calculated 286 (280-300); Potassium 3.7 mEq/L (3.5-4.5); Sodium 140 mEq/L (136-145); Total Protein 7.1 g/dL (6.0-8.3); eGFR For African Americans > 60 (> 60); eGFR For Non-African Americans > 60 (> 60)
[2017-03-08 07:37] LABS: Hematocrit 40.6 % (35.3-44.9); Hemoglobin 13.9 g/dL (11.5-15.4); Mean Corpuscular HGB Conc 34.2 g/dL (31.6-35.5); Mean Corpuscular Hemoglobin 29.3 pg (28.0-33.3); Mean Corpuscular Volume 85.7 fL (83.0-100.0); Mean Platelet Volume 10.6 fL (9.4-12.4); Platelet Count 257 K/mcL (140-400); Red Blood Count 4.74 M/mcL (3.82-4.97); Red Cell Distribution Width 12.5 % (11.5-14.5)
[2017-03-08 07:56] LABS: Aspartate Amino Transferase 34 Units/L (5-34); Blood Urea Nitrogen 2 mg/dL (7-20); Magnesium 2.1 mg/dL (1.6-2.6)
--- NOTE | 2017-03-08 08:23 | Discharge Summary ---
<Naveed Way - Last Filed: 03/08/17 15:06> Date of Encounter: 03/08/17 Time of Encounter: 08:21 - Discharge Diagnosis (1) Acute pancreatitis Priority: Primary Status: Acute Comments: Unknown etiology of Acute Pancreatitis, decreased lipase from 2440 to 80. Patient has multiple episodes of acute pancreatitis in the past. Patient reports drinking alcohol 1 week ago. Continue IV fluids and pain control. Continue Dilaudid and morphine when necessary for pain. Continue PPI. Discontinued lisinopril. Tolerating regular diet. D/c to [facility] with outpatient follow-up. Percocet Rx prn pain. Qualifiers: Pancreatitis type: unspecified pancreatitis type (2) Epigastric abdominal pain Priority: Primary Status: Acute Comments: See above. May need repeat CT scan if symptoms worsen to rule out pancreatic necrosis. Patient denies history of hepatitis (3) Hypokalemia Priority: Primary Status: Resolved (4) Nicotine dependence Priority: Primary Status: Chronic Comments: Discussed tobacco cessation. Patient declines nicotine patch Qualifiers: Nicotine product type: cigarettes Substance use status: unspecified nicotine-induced disorder Qualified Code(s): F17.219 - Nicotine dependence, cigarettes, with unspecified nicotine-induced disorders (5) HTN (hypertension) Priority: Secondary Status: Chronic Comments: Discontinue lisinopril secondary to recurrent pancreatitis. Continue nifedipine Qualifiers: Hypertension type: essential hypertension Qualified Code(s): I10 - Essential (primary) hypertension (6) DVT prophylaxis Priority: Primary Status: Acute Comments: SCDs. Encourage ambulation. Patient seen and examined, plan discussed with and agreed upon with Dr. Crane - Discharge Medications Prescriptions: Oxycodone HCl/Acetaminophen [Percocet 5-325 mg Tablet] 1 each PO Q6H PRN #30 tablet PRN Reason: Pain Home Medications: Gabapentin 600 mg PO BID 07/22/15 [History] NIFEdipine [Nifedical Xl] 30 mg PO HS 07/22/15 [History] Pravastatin Sodium 80 mg PO HS 07/22/15 [History] Trazodone HCl 150 mg PO HS 07/22/15 [History] clonazePAM [Clonazepam] 0.5 mg PO HS 07/22/15 [History] Ibuprofen [Motrin] 200 - 600 mg PO Q6HR PRN 03/05/17 [History] Oxycodone HCl/Acetaminophen [Percocet 5-325 mg Tablet] 1 each PO Q6H PRN #30 tablet 03/08/17 [Rx] Allergies/Adverse Reactions: Allergies No Known Allergies Allergy (Verified 03/04/17 19:06) Date of admission: 03/06/17 06:14 Primary care physician: Nanette Jacobson, Discharging clinician: Carlton Crane Anticipated date of discharge: 03/08/17 - Patient Status Disposition: Home, Self-Care Condition: Good Functional capacity at discharge: independent ambulation Overall status at discharge: patient is back to baseline - Discharge Instructions Instructions: Pancreatitis (DC), Chronic Hypertension (DC) Follow Up With: Nanette Jacobson MD [Primary Care Provider] - 03/11/17 10:30 am (web request sent on 03/05/17) Additional Instructions: Stop taking Lisinopril. Stop smoking. Follow up with PCP in 1 week. - Diet and Activity Activity: increase activity as tolerated Diet: regular diet Hospital course: Ms. Dalal is a 67 year old female with past medical history of Hypertension, ruptured intracranial aneurysm, s/p cholecystectomy. She has a diagnosis of chronic pancreatitis (but the current imaging does not report changes of chronic pancreatitis) and multiple episodes of acute pancreatitis in the past. Patient reports drinking alcohol 1 week ago. She presented to the ER, with h/o sudden onset of sharp epigastric abdominal pain, starting at about 1 PM on 2016. Pain radiates to the back, severe and associated with nausea but no vomiting. She reports about 7 episodes of diarrhea, but no melena or hematochezia. CT Abdomen and pelvis showed non obstructing stone in the right kidney. Lipase was initially normal. UA was abnormal and was given ceftriaxone, IV fluids, and admitted to the hospitalist service for further management. Repeat lipase was 2440 on morning labs and IVF were increased to 200cc hour. Patient denied urinary symptoms and Rocephin was discontinued. She continued to improved during the hospital course and lipase decreased to 80. Her pain level was controlled with Dilaudid and Morphine and Lisinopril was discontinued due to uncertain etiology of chronic pancreatitis. Pt was tolerating PO intake by Hospital day 3 and was encouraged to follow up with PCP upon discharge. Time spent discussing smoking cessation with patient: 3 to 10 minutes - Time Spent with Patient Total time spent providing and/or coordinating discharge services: - Constitutional Vitals: Temp Pulse Resp BP Pulse Ox 98.3 F 90 18 124/75 94 03/08/17 07:06 03/08/17 07:06 03/08/17 07:06 03/08/17 07:06 03/08/17 07:06 General appearance: Present: cooperative, disheveled, mild distress, A&O X 3, pleasant, answers questions appropriately - Head Head exam: Present: atraumatic, normocephalic - Eye Eye exam: Present: PERRL, conjuntiva pink, sclera anicteric Pupils: Present: PERRL - ENT ENT exam: Present: mucous membranes moist, normal oropharynx - Neck Neck exam general surgery: Present: supple, trachea midline. Absent: lymphadenopathy - Respiratory Respiratory exam: Present: CTAB. Absent: accessory muscle use, rales, rhonchi, wheezes - Cardiovascular Cardiovascular exam: Present: RRR, +S1, +S2. Absent: diastolic murmur, gallop, rubs, systolic murmur - GI/Abdominal GI/Abdominal exam: Present: guarding (voluntary), normal bowel sounds, soft, tenderness (epigastric), no peritoneal signs. Absent: distended - Extremities Exam Extremities exam: Present: warm, radial pulses palpable and symetrical. Absent : calf tenderness, cyanotic, pedal edema - Neurological Exam Neurological exam: Present: CN II-XII intact, oriented X3, no focal deficits. Absent: pronater drift, facial droop, speech deficit - Psychiatric Psychiatric exam: Present: normal affect, normal mood - Skin Skin exam: Present: dry, intact, warm <Carlton Crane - Last Filed: 03/08/17 17:27> Date of Encounter: 03/08/17 - Discharge Diagnosis (1) Pancreatitis Status: Suspected Qualifiers: Chronicity: acute Pancreatitis type: drug induced Acute pancreatitis complication: no infection or necrosis Qualified Code(s): K85.30 - Drug induced acute pancreatitis without necrosis or infection (2) Epigastric abdominal pain Status: Acute (3) HTN (hypertension) Status: Chronic Qualifiers: Hypertension type: essential hypertension Qualified Code(s): I10 - Essential (primary) hypertension (4) Hypokalemia Status: Resolved (5) Nicotine dependence Status: Chronic Qualifiers: Nicotine product type: cigarettes Substance use status: unspecified nicotine-induced disorder Qualified Code(s): F17.219 - Nicotine dependence, cigarettes, with unspecified nicotine-induced disorders Date of admission: 03/06/17 06:14 Primary care physician: Nanette Jacobson, Hospital course: Ms. Dalal is a 67 year old female - Time Spent with Patient Total time spent providing and/or coordinating discharge services: - Constitutional Vitals: Temp Pulse Resp BP Pulse Ox 98.4 F 88 18 111/66 95 03/08/17 10:33 03/08/17 10:33 03/08/17 10:33 03/08/17 10:33 03/08/17 10:33 - Attending Attestation I examined this patient and my medical decision-making was reviewed with the Resident Physician on 03/08/17. I agree with the documented findings, disposition and treatment plan as described except to the extent set forth below. Ms. Dalal has been admitted for acute pancreatitis concerning due to Lisinopril. She has improved and feels ready to go home. Tolerating diet. Wants some pain med to take if needed (doesn't want to come back to ED if not needed). No fever and vitals stable. Exam Alert. Comfortable Heart reg No wheeze Abd nontender now Plan D/C home today Percocet for pain Followup with PCP for further issues Hold Lisinopril.
[2017-03-08] MEDS: Gabapentin 300 MG CAPSULE PO SCH (08:29)
[2017-03-08] MEDS: Pantoprazole 40 MG VIAL IVP SCH (08:29)
[2017-03-08 10:35] VITALS: BP 111/66
== END 2017-03-08 12:35 | disposition home or self-care (01) | DRG 439 ==
LOC: 2ANU 18:28 → EMEROO 18:28 → SUATTDRO 23:41 → 2ANU 03-05 00:05 → SUATTDRO 03-06 06:14
PROVIDERS: ADMIT Internal Medicine; ATTEND Internal Medicine

== ENCOUNTER 2018-11-30 10:51 | Inpatient (IN) ==
[2018-11-30] MEDS ORDERED: Ipratropium/Albuterol Neb 3 ML IH ONE (11:19)
--- NOTE | 2018-11-30 11:47 | Emergency Department Note ---
Disposition Clinical Impression: Sepsis Pneumonia Qualifiers: Pneumonia type: due to unspecified organism Laterality: right Lung location: lower lobe of lung Qualified Code(s): J18.1 - Lobar pneumonia, unspecified [facility] Disposition: Admitted As Inpatient Condition: Fair General Adult HPI - General Chief complaint: ED Fever Stated complaint: Possible pnuemonia Time Seen by Provider: 11/30/18 11:04 Source: patient, family Limitations: no limitations Nursing Notes Reviewed: Yes Vital Signs Reviewed: Yes - History of Present Illness HPI Narrative: Patient's a 68-year-old female who presents the emergency department with complaints of fever, cough and shortness of breath since this morning. The patient states she believes she has pneumonia as she had this 5-6 years ago and this feels similar. She states she has had subjective fever at home but has not taking anything today. She notes intermittent posttussive emesis. She has had decreased appetite but denies any nausea, diarrhea, abdominal pain, dysuria, hematuria. She denies any history of COPD but does smoke daily. Denies any sick contacts. Pain Scale: 5 - Related Data Home Medications Medication Instructions Recorded Confirmed RX: Trazodone HCl 150 mg PO HS 07/22/15 11/30/18 RX: Ibuprofen [Motrin] 200 - 600 mg PO Q6HR PRN 03/05/17 11/30/18 RX: amLODIPine [Norvasc] 5 mg PO DAILY 11/30/18 12/01/18 RX: Gabapentin 600 mg PO BID 12/01/18 12/01/18 RX: NIFEdipine [Nifedipine ER] 30 mg PO DAILY 12/01/18 12/01/18 RX: Oxycodone HCl/Acetaminophen 1 tab PO BID PRN 12/01/18 12/01/18 [Percocet 5-325 mg Tablet] RX: Pravastatin Sodium [Pravachol] 80 mg PO HS 12/01/18 12/01/18 RX: clonazePAM [Clonazepam] 0.5 mg PO HS 12/01/18 12/01/18 Previous Rx's Medication Instructions Recorded Albuterol Sulfate [Albuterol 0 puff IH Q4HR #1 hfa.aer.ad 12/03/18 Inhaler] RX: Albuterol Neb [AccuNeb] 1.25 mg IH Q6H #60 vial 12/03/18 RX: Nebulizer [Aeroeclipse] 1 each MC Q6H #1 each 12/03/18 RX: predniSONE [PredniSONE] 40 mg PO DAILY #6 tablet 12/03/18 levoFLOXacin [Levaquin] 750 mg PO DAILY #4 tablet 12/03/18 Allergies Allergy/AdvReac Type Severity Reaction Status Date / Time No Known Allergies Allergy Verified 12/01/18 13:39 Review of Systems: ROS per history of present illness all other systems reviewed and negative or normal. All systems ED: reviewed and negative except as stated. Review of Systems: As Per HPI Past Medical History - Past Medical History Medical history: Reports: hypertension, kidney stones, seizures, other Surgical history: Reports: appendectomy, cholecystectomy, hysterectomy Psychiatric history: Reports: no psych history DIRECTOR CLINICAL DATA history: Reports: no DIRECTOR CLINICAL DATA history - Social History Smoking Status: Current every day smoker Smokeless Tobacco Status: No Alcohol use: Reports: none Drug use: Reports: none Physical Exam General: Follow commands. Appears stated age. Patient is significant, persisten t and frequent cough which hinders her ability to answer questions. Neck: No JVD. Trachea midline. Neck supple. Eyes: PERRL. No scleral icterus. HENT: Normocephalic and atraumatic. Moist mucus membranes. Cardiovascular: Tachycardic, regular rhythm. Normal S1 and S2. No murmurs appreciated. Normal capillary refill. Extremities well perfused with 2+ distal pulses bilaterally. No edema. Pulmonary: Crackles in the right lower base, wheezing anteriorly which clears with coughing. Not in respiratory distress. Abdomen: Soft, nondistended, and tontender. No bruits or masses. No guarding. Neuro: Alert and oriented x3. No slurred speech. No focal deficits noted. Skin: No rashes noted on visualized skin. Musculoskeletal: No bony abnormalities visualized. Moves all extremities. Psych: Normal mood. Pleasant. Makes appropriate eye contact. - General Limitations: no limitations General appearance: alert Course Course Narrative: Patient presenting with significant cough and crackles in the right lower base with intermittent wheezing. She does meet Sirs criteria given her fever, tachycardia and intermittent hypoxia. We will give the patient 2 nebs, methylprednisolone and obtained CBC, BMP, septic workup including blood cultures and chest x-ray. Vital Signs Temperature 101.4 F H 11/30/18 10:59 Pulse Rate 117 11/30/18 10:59 Respiratory Rate 27 11/30/18 10:59 Blood Pressure 109/61 11/30/18 10:59 O2 Sat by Pulse Oximetry 89 11/30/18 10:59 Temperature 97.3 F L 12/03/18 07:16 Pulse Rate 75 12/03/18 07:16 Respiratory Rate 15 12/03/18 07:16 Blood Pressure 92/55 12/03/18 07:16 O2 Sat by Pulse Oximetry 98 12/03/18 07:16 Oxygen Delivery Oxygen Delivery Nasal Cannula Procedures - Central Line Placement Right IJ Central Line Inserted*: Yes Central Line Catheter Replacement*: Yes Central Line Insertion: emergent Consent Obtained: written consent Procedural Pause: verify patient name and date of , timeout performed per policy, christen and assess the site, assemble equipment and verify supplies, perform hand hygiene Patient Placed on Monitor/Pulse Ox: Yes During the Procedure: clinician is wearing sterile gloves, cap, mask,& gown during insertion, sterile field and sterile technique are maintained, patient's face is covered with drape or mask and wearing a cap, everyone in room is wearing a mask Central Line Prep: Chlorhexidine scrub Prep the Procedure Site: apply chloraprep to the skin using a back and forth scrubbing motion, apply chloraprep for 30 seconds (upper body), 1-2 min (femoral sites), drape the patient with a full body drape Local Anesthetic: lidocaine 1% Amount of anesthesia used (mL): 5 Ultrasound Used for Placement: Yes Central Line Lumen Inserted: triple Post Procedure: sutured in place, good blood return, all ports aspirated, flushed, capped, sterile dressing applied, guide wire removed and visualized, dressing is dated Post Procedure X-Ray: tip of catheter in good position, no pneumothorax seen Patient Tolerated Procedure: well, no complications Complications: none Medical Decision Making - MDM Narrative Medical decision making narrative: 68-year-old female who presents with shortness of breath. Initial vital signs show fever, tachycardia and hypoxia. She is not on baseline oxygen. Patient does have coarse wheezing throughout as well as right lower lobe crackles and rhonchi. Given initially meeting SIRS criteria did obtain septic evaluation including CBC, BMP, lactate, troponin, blood cultures, influenza swab, and chest x-ray. Given the patient's borderline bright blood pressure also gave 3 L fluid bolus as well as duoneb, 80 mg methylprednisolone, and initiated on rocephin and azithromycin. She did have slight initial improvement with her DuoNeb treatment but after 3 L fluid bolus the patient's blood pressure was in the 80s over 50s with map in the 50s. Given the patient's lack of response to IV fluids did place a right IJ central venous catheter. After placement the patient had improvement in her blood pressure and did not require initiation of vasopressors. The patient does continue to require oxygen above her baseline. The patient does not have significant leukocytosis, lactic acidosis, or acute electrolyte abnormalities. Initially there was concern that there were not critical care beds available for the patient but over the last hour of her stay her blood pressures remained normotensive and did not require vasopressors. S patricia with hospitalist, Dr. Terry who agrees with plan for admission. All questions answered. - Medical Records Medical records reviewed: Yes I reviewed the patient's medical records. - Lab Data Lab results reviewed: Yes I reviewed the patient's lab results. Result diagrams: 12/03/18 09:22 12/03/18 09:22 Lab Results 11/30/18 11/30/18 11/30/18 Range/Units 12:07 12:07 12:07 WBC 11.0 (4.3-11.1) K/mcL RBC 5.02 H (3.82-4.97) M/mcL Hgb 14.7 (11.5-15.4) g/dL Hct 42.4 (35.3-44.9) % MCV 84.5 (83.0-100.0) fL MCH 29.3 (28.0-33.3) pg MCHC 34.7 (31.6-35.5) g/dL RDW 13.5 (11.5-14.5) % Plt Count 254 (140-400) K/mcL MPV 10.1 (9.4-12.4) fL Immature Gran % 0.4 (0-4) % Seg Neutrophils % 74.1 % Lymphocytes % 17.3 % Monocytes % 7.7 % Eosinophils % 0.1 % Basophils % 0.4 % Neutrophils # 8.2 (1.6-8.9) K/mcL Lymphocytes # 1.9 (0.6-4.6) K/mcL Monocytes # 0.9 (0.0-1.3) K/mcL Eosinophils # 0.0 (0.0-0.6) K/mcL Basophils # 0.0 (0.0-0.2) K/mcL PT 11.6 (9.4-12.1) Seconds INR 1.0 APTT 30.4 (26.0-36.0) Seconds Sodium 138 (136-145) mEq/L Potassium 3.8 (3.5-5.1) mEq/L Chloride 102 (98-107) mEq/L Carbon Dioxide 24 (23-29) mEq/L BUN 13 (8-23) mg/dL Creatinine 0.86 (0.60-1.20) mg/dL Est GFR ( Amer) > 60 (> 60) Est GFR (Non-Af Amer) > 60 (> 60) BUN/Creatinine Ratio 15 (6-26) Glucose 129 H (70-105) mg/dL Calculated Osmolality 288 (280-300) Lactic Acid (0.5-2.2) mmol/L Calcium 9.1 (8.6-10.3) mg/dL Phosphorus 3.8 (2.7-4.5) mg/dL Magnesium 1.8 (1.6-2.6) mg/dL Total Bilirubin 0.4 (0.3-1.0) mg/dL Direct Bilirubin 0.1 (0.0-0.2) mg/dL Indirect Bilirubin 0.3 (0.0-1.2) mg/dL AST 18 (13-39) Units/L ALT 13 (7-52) Units/L Alkaline Phosphatase 79 (34-104) Units/L Troponin I < 0.03 (< 0.04) ng/mL Serum Total Protein 7.2 (6.4-8.9) g/dL Albumin 4.2 (3.5-5.7) g/dL Globulin 3.0 (2.4-3.5) g/dL Albumin/Globulin Ratio 1.4 (1.1-2.2) Procalcitonin (<=0.07) ng/mL Urine Color (Yellow) Urine Clarity (Clear) Urine pH (5.0-8.0) pH Units Ur Specific [place] (1.010-1.025) Urine Protein (Neg-Trace) mg/dL Urine Glucose (UA) (Normal) mg/dL Urine Ketones (Negative) mg/dL Urine Blood (Negative) Urine Nitrite (Negative) Urine Bilirubin (Negative) Urine Urobilinogen (Normal) mg/dL Ur Leukocyte Esterase (Negative) Urine Microscopic RBC (0-3) per hpf Urine Microscopic WBC (0-3) per hpf Ur Squamous Epith Cells (None-Few) per lpf Urine Bacteria (None-Few) per hpf Hyaline Casts (None-Few) per lpf Ur Culture Indicated? (NO) Specimen Rejected 11/30/18 11/30/18 11/30/18 Range/Units 12:07 12:07 12:25 WBC (4.3-11.1) K/mcL RBC (3.82-4.97) M/mcL Hgb (11.5-15.4) g/dL Hct (35.3-44.9) % MCV (83.0-100.0) fL MCH (28.0-33.3) pg MCHC (31.6-35.5) g/dL RDW (11.5-14.5) % Plt Count (140-400) K/mcL MPV (9.4-12.4) fL Immature Gran % (0-4) % Seg Neutrophils % % Lymphocytes % % Monocytes % % Eosinophils % % Basophils % % Neutrophils # (1.6-8.9) K/mcL Lymphocytes # (0.6-4.6) K/mcL Monocytes # (0.0-1.3) K/mcL Eosinophils # (0.0-0.6) K/mcL Basophils # (0.0-0.2) K/mcL PT (9.4-12.1) Seconds INR APTT (26.0-36.0) Seconds Sodium (136-145) mEq/L Potassium (3.5-5.1) mEq/L Chloride (98-107) mEq/L Carbon Dioxide (23-29) mEq/L BUN (8-23) mg/dL Creatinine (0.60-1.20) mg/dL Est GFR ( Amer) (> 60) Est GFR (Non-Af Amer) (> 60) BUN/Creatinine Ratio (6-26) Glucose (70-105) mg/dL Calculated Osmolality (280-300) Lactic Acid 1.0 (0.5-2.2) mmol/L Calcium (8.6-10.3) mg/dL Phosphorus (2.7-4.5) mg/dL Magnesium (1.6-2.6) mg/dL Total Bilirubin (0.3-1.0) mg/dL Direct Bilirubin (0.0-0.2) mg/dL Indirect Bilirubin (0.0-1.2) mg/dL AST (13-39) Units/L ALT (7-52) Units/L Alkaline Phosphatase (34-104) Units/L Troponin I (< 0.04) ng/mL Serum Total Protein (6.4-8.9) g/dL Albumin (3.5-5.7) g/dL Globulin (2.4-3.5) g/dL Albumin/Globulin Ratio (1.1-2.2) Procalcitonin <0.07 (<=0.07) ng/mL Urine Color (Yellow) Urine Clarity (Clear) Urine pH (5.0-8.0) pH Units Ur Specific [place] (1.010-1.025) Urine Protein (Neg-Trace) mg/dL Urine Glucose (UA) (Normal) mg/dL Urine Ketones (Negative) mg/dL Urine Blood (Negative) Urine Nitrite (Negative) Urine Bilirubin (Negative) Urine Urobilinogen (Normal) mg/dL Ur Leukocyte Esterase (Negative) Urine Microscopic RBC (0-3) per hpf Urine Microscopic WBC (0-3) per hpf Ur Squamous Epith Cells (None-Few) per lpf Urine Bacteria (None-Few) per hpf Hyaline Casts (None-Few) per lpf Ur Culture Indicated? (NO) Specimen Rejected Labelling 11/30/18 Range/Units 12:56 WBC (4.3-11.1) K/mcL RBC (3.82-4.97) M/mcL Hgb (11.5-15.4) g/dL Hct (35.3-44.9) % MCV (83.0-100.0) fL MCH (28.0-33.3) pg MCHC (31.6-35.5) g/dL RDW (11.5-14.5) % Plt Count (140-400) K/mcL MPV (9.4-12.4) fL Immature Gran % (0-4) % Seg Neutrophils % % Lymphocytes % % Monocytes % % Eosinophils % % Basophils % % Neutrophils # (1.6-8.9) K/mcL Lymphocytes # (0.6-4.6) K/mcL Monocytes # (0.0-1.3) K/mcL Eosinophils # (0.0-0.6) K/mcL Basophils # (0.0-0.2) K/mcL PT (9.4-12.1) Seconds INR APTT (26.0-36.0) Seconds Sodium (136-145) mEq/L Potassium (3.5-5.1) mEq/L Chloride (98-107) mEq/L Carbon Dioxide (23-29) mEq/L BUN (8-23) mg/dL Creatinine (0.60-1.20) mg/dL Est GFR ( Amer) (> 60) Est GFR (Non-Af Amer) (> 60) BUN/Creatinine Ratio (6-26) Glucose (70-105) mg/dL Calculated Osmolality (280-300) Lactic Acid (0.5-2.2) mmol/L Calcium (8.6-10.3) mg/dL Phosphorus (2.7-4.5) mg/dL Magnesium (1.6-2.6) mg/dL Total Bilirubin (0.3-1.0) mg/dL Direct Bilirubin (0.0-0.2) mg/dL Indirect Bilirubin (0.0-1.2) mg/dL AST (13-39) Units/L ALT (7-52) Units/L Alkaline Phosphatase (34-104) Units/L Troponin I (< 0.04) ng/mL Serum Total Protein (6.4-8.9) g/dL Albumin (3.5-5.7) g/dL Globulin (2.4-3.5) g/dL Albumin/Globulin Ratio (1.1-2.2) Procalcitonin (<=0.07) ng/mL Urine Color Yellow (Yellow) Urine Clarity Slightly Hazy (Clear) Urine pH 6.0 (5.0-8.0) pH Units Ur Specific [place] 1.014 (1.010-1.025) Urine Protein Trace (Neg-Trace) mg/dL Urine Glucose (UA) Normal (Normal) mg/dL Urine Ketones Trace H (Negative) mg/dL Urine Blood Moderate H (Negative) Urine Nitrite Negative (Negative) Urine Bilirubin Small H (Negative) Urine Urobilinogen Normal (Normal) mg/dL Ur Leukocyte Esterase Trace H (Negative) Urine Microscopic RBC 3-5 H (0-3) per hpf Urine Microscopic WBC 3-5 H (0-3) per hpf Ur Squamous Epith Cells Many H (None-Few) per lpf Urine Bacteria Few (None-Few) per hpf Hyaline Casts Moderate H (None-Few) per lpf Ur Culture Indicated? NO. A (NO) Specimen Rejected - Radiology Data Radiology results reviewed: Yes I reviewed the patient's radiology results. Chest CTA 11/30/18 12:19 IMPRESSION: No pulmonary emboli are identified. The mass seen on chest x-ray corresponds to a prominent epicardial fat pad, with no underlying lung mass identified. Scattered ground-glass change with some areas of bronchial thickening and tree-in-bud like nodules seen suspicious for acute bronchiolitis. There also some enlarged right hilar and mediastinal lymph nodes which may be reactive. Follow-up CT recommended as below, where lymphadenopathy can be reassessed. There is a focal subpleural 5 mm pulmonary nodule in the left upper lobe for which further evaluation is recommended as as below. Repeat imaging of the chest in 3 months may be beneficial to document resolution, as well as re-evaluation of persistent pulmonary nodules that should be followed up based on Fleischner criteria. The largest nodule seen that may not be related to possible bronchiolitis measures approximately 5 mm, where an optional scan would be recommended in 1 year. Questionable focal ovoid masslike area of enhancement measuring 11.8 x 9.2 mm in the right mid kidney, for which further evaluation is recommended with renal mass MRI versus CT study. Focal nodule extending off the inferior aspect of the left thyroid lobe versus an enlarged mediastinal lymph node measuring 13.7 x 9.9 mm. There is also a 4 mm hypodense nodule in the left thyroid lobe. Recommend further evaluation with ultrasound given the questionable nature of this finding. RECOMMENDATIONS: Managing Incidental Thyroid Nodule Detected at CT or MRI or US 1. Further evaluation by thyroid Ultrasound recommended for these incidental nodules: Patient Age 18 years or less - Nodule of any size Patient Age 19-34 years old - Nodule 1 cm in size or greater Patient Age 35 years or more - Nodule 1.5 cm in size or greater 2. Follow up thyroid ultrasound also recommend in these scenarios - Solitary nodule with high risk imaging features (locally invasive nodule or suspicious lymph nodes) - Heterogeneous, enlarged thyroid gland. - Increased uptake on PET 3. No further imaging is recommended in the following scenarios - Any nodule not meeting above criteria. - Those patients with limited life expectancy or significant Co-morbidities. Note: These recommendations do not apply to pts. w/ increased risk for thyroid cancer or pts. with symptomatic thyroid disease. Recommendations for f/u of Incidental Thyroid Nodules (ITN) found on CT, MR, NM and Extrathyroidal US are based upon the ACR white paper and Beasley 3-tiered system for managing ITNs: J Am Shaneka Radiol. 2015 Sep;12(2): 143-50 D/ / Naveed Morales MD / Naveed Morales MD Interpreting Provider: Naveed Morales MD Chest X-Ray 11/30/18 15:11 IMPRESSION: New right jugular central line without evident complication. Mild diffuse interstitial lung markings throughout both lungs new or increased from exam earlier today. The rapid change would favor interstitial pulmonary edema either from volume overload or mild congestive heart failure. D/ / Kaveh Moseley MD / Kaveh Moseley MD Interpreting Provider: Kaveh Moseley MD - EKG Data EKG #1 EKG attestation: Yes I reviewed and interpreted this EKG. EKG results narrative: Sinus tachycardia rate of 119. IA 137. Normal intervals. Normal axis. No evidence of ST elevations. When compared with prior from 03/04/17 there are no significant changes.
[2018-11-30] MEDS ORDERED: 0.9 % Sodium Chloride 1,000 ML IVC STA (11:57)
[2018-11-30] MEDS ORDERED: methylPREDNISolone 125 MG/2 ML VIAL IVP SCH (12:00)
[2018-11-30] MEDS ORDERED: Isovue-370 500 ML BOTTLE IVP ONE (12:19)
--- NOTE | 2018-11-30 12:25 | Emergency Department Note ---
Disposition Clinical Impression: Pneumonia, Sepsis Disposition: Still a Patient Condition: Serious Referrals: Joanna Degroot, FIRE WATCHER [Primary Care Provider] - Forms: ED Satisfaction Letter Fever HPI - General Chief Complaint: ED Fever Stated Complaint: Possible pnuemonia Time Seen by Provider: 11/30/18 11:04 Source: patient, family Limitations: no limitations - Related Data Home Medications Medication Instructions Recorded Confirmed Gabapentin 600 mg PO BID 07/22/15 03/05/17 NIFEdipine [Nifedical Xl] 30 mg PO HS 07/22/15 03/05/17 Pravastatin Sodium 80 mg PO HS 07/22/15 03/05/17 Trazodone HCl 150 mg PO HS 07/22/15 03/05/17 clonazePAM [Clonazepam] 0.5 mg PO HS 07/22/15 03/05/17 Ibuprofen [Motrin] 200 - 600 mg PO Q6HR PRN 03/05/17 03/05/17 Previous Rx's Medication Instructions Recorded Oxycodone HCl/Acetaminophen 1 each PO Q6H PRN #30 tablet 03/08/17 [Percocet 5-325 mg Tablet] Allergies Allergy/AdvReac Type Severity Reaction Status Date / Time No Known Allergies Allergy Verified 03/04/17 19:06 Fever PMH - Past Medical History Medical history: Reports: hypertension, kidney stones, seizures, other Surgical history: Reports: appendectomy, cholecystectomy, hysterectomy Psychiatric history: Reports: no psych history MENTAL HEALTH COORDINATOR history: Reports: no MENTAL HEALTH COORDINATOR history - Social History Smoking Status: Current every day smoker Alcohol use: Reports: none Drug use: Reports: none Physical Exam - General Limitations: no limitations General appearance: alert Course Vital Signs Temperature 101.4 F H 11/30/18 10:59 Pulse Rate 117 11/30/18 10:59 Respiratory Rate 27 11/30/18 10:59 Blood Pressure 109/61 11/30/18 10:59 O2 Sat by Pulse Oximetry 89 11/30/18 10:59 Temperature 101.4 F H 11/30/18 10:59 Pulse Rate 117 11/30/18 10:59 Respiratory Rate 24 11/30/18 12:07 Blood Pressure 109/61 11/30/18 10:59 O2 Sat by Pulse Oximetry 93 11/30/18 12:07 Oxygen Delivery Oxygen Delivery Room Air Attestation Statement - Attestation Attestation: I have seen this patient with the resident physician, I have personally evaluated this patient. I had reviewed the chart and document dictation by the resident physician and M in agreement with the information documented by the resident physician. Please see documentation by the resident physician for complete chart including past medical history, family medical history, review of systems, current history and physical and laboratory and imaging studies. Patient presents emergency Department with chief complaint of feeling like she has pneumonia with increased cough fevers chills body aches. Production and s hortness of breath. On physical examination she had diffuse wheezing throughout her lungs, was tachycardic, had some rhonchi in the right base. She appeared ill but nontoxic. She is alert and oriented, no meningeal sign. Skin is warm to the touch, slightly diaphoretic no rash or petechiae. Abdomen soft and nontender. Secondary to vital signs consistent with systemic inflammatory response syn drome, sepsis order set was utilized, hypotension. She was given Tylenol for fever, she was given IV fluids, she was given breathing treatments, she was given Solu-Medrol. Chest x-ray showed evidence suggesting likely right lower lobe infiltrate although could not rule out mass recommended CT scan. She was started on IV antibiotics. CT scan of the chest was ordered. Basic laboratory studies including blood cultures were ordered. Patient will be admitted to the hospital for further evaluation and management, pending her completed workup, for pneumonia and systemic inflammatory response syndrome, consistent with sepsis. Total critical care time is right eye some excluding any procedures performed is 30 minutes and management thereof, including IV fluids, repeat evaluations, initiating fluid resuscitation, breathing treatments, IV antibiotics.
[2018-11-30 12:31] LABS: Basophils % 0.4 %; Eosinophils % 0.1 %; Hematocrit 42.4 % (35.3-44.9); Hemoglobin 14.7 g/dL (11.5-15.4); Immature Granulocytes % 0.4 % (0-4); Lymphocytes # 1.9 K/mcL (0.6-4.6); Lymphocytes % 17.3 %; Mean Corpuscular HGB Conc 34.7 g/dL (31.6-35.5); Mean Corpuscular Hemoglobin 29.3 pg (28.0-33.3); Mean Corpuscular Volume 84.5 fL (83.0-100.0); Mean Platelet Volume 10.1 fL (9.4-12.4); Monocytes # 0.9 K/mcL (0.0-1.3); Monocytes % 7.7 %; Neutrophils # 8.2 K/mcL (1.6-8.9); Platelet Count 254 K/mcL (140-400); Red Blood Count 5.02 M/mcL (3.82-4.97); Red Cell Distribution Width 13.5 % (11.5-14.5); Segmented Neutrophils % 74.1 %
[2018-11-30 12:39] LABS: Prothrombin Time 11.6 Seconds (9.4-12.1)
[2018-11-30 12:41] LABS: Activated Partial Thrombo Time 30.4 Seconds (26.0-36.0)
[2018-11-30 12:56] LABS: Alanine Aminotransferase 13 Units/L (7-52); Albumin 4.2 g/dL (3.5-5.7); Albumin/Globulin Ratio 1.4 (1.1-2.2); Alkaline Phosphatase 79 Units/L (34-104); Aspartate Amino Transferase 18 Units/L (13-39); BUN/Creatinine Ratio 15 (6-26); Bilirubin,Direct 0.1 mg/dL (0.0-0.2); Bilirubin,Indirect 0.3 mg/dL (0.0-1.2); Bilirubin,Total 0.4 mg/dL (0.3-1.0); Blood Urea Nitrogen 13 mg/dL (8-23); Calcium 9.1 mg/dL (8.6-10.3); Carbon Dioxide 24 mEq/L (23-29); Chloride 102 mEq/L (98-107); Glucose 129 mg/dL (70-105); Magnesium 1.8 mg/dL (1.6-2.6); Osmolality,Calculated 288 (280-300); Phosphorous 3.8 mg/dL (2.7-4.5); Potassium 3.8 mEq/L (3.5-5.1); Sodium 138 mEq/L (136-145); Total Protein 7.2 g/dL (6.4-8.9); Troponin I < 0.03 ng/mL (< 0.04); eGFR For Non-African Americans > 60 (> 60)
[2018-11-30] MEDS ORDERED: Azithromycin 500 MG in D5% in Water 250 ML IVPB STA (12:58)
[2018-11-30] MEDS ORDERED: cefTRIAXone 1,000 MG in Water for inj. (sterile) 20 ML 10 ML IVP ONE (12:58)
[2018-11-30] MEDS ORDERED: 0.9 % Sodium Chloride 1,000 ML IVC ONE (13:07)
[2018-11-30 13:12] LABS: Bilirubin,Urine Small (Negative); Blood,Urine Moderate (Negative); Color,Urine Yellow (Yellow); Glucose,Urine (UA) Normal (Normal); Ketones,Urine Trace mg/dL (Negative); Leukocyte Esterase,Urine Trace (Negative); Nitrite,Urine Negative (Negative); Protein,Urine Trace mg/dL (Neg-Trace); Specific Gravity,Urine 1.014 (1.010-1.025); Urobilinogen,Urine Normal (Normal)
[2018-11-30 13:14] LABS: Bacteria,Urine Few per hpf (None-Few); Squamous Epithelial Cell,Urine Many per lpf (None-Few)
[2018-11-30 13:15] LABS: Clarity,Urine Slightly Hazy (Clear)
[2018-11-30] MEDS: 0.9 % Sodium Chloride 1,000 ML IVC STA ×2 (13:26→14:12)
[2018-11-30 13:33] LABS: Hyaline Casts,Urine Moderate per lpf (None-Few)
[2018-11-30] MEDS ORDERED: *HR* Norepinephrine 4 MG/4 ML VIAL IVC ONE (14:44)
[2018-11-30] MEDS ORDERED: D5% in Water 250 ML ONE (14:44)
[2018-11-30] MEDS ORDERED: Norepinephrine 4 MG in D5% in Water 250 ML IVC SCH (14:45)
[2018-11-30] MEDS ORDERED: Albuterol 2.5 MG/3 ML NEBULIZER IH ONE (15:27)
--- NOTE | 2018-11-30 17:07 | Internal Med History&Physical ---
<Henry Kelley - Last Filed: 11/30/18 17:12> Date of Encounter: 11/30/18 Time of Encounter: 17:12 Internal Medicine - H&P: HPI Chief complaint: sob Admitted From: Emergency Dept Plans for Post Hospital Care: Home History of present illness: Ms. Dalal is a 68 year old female with history of hypertension, pancreatitis, tobacco use, hyperlipidemia, anxiety presents with chief complaint of cough and shortness of breath that started last Friday. Patient's reports productive cough and shortness of breath that progressively worsened. She had sputum production but denied hemoptysis. Patient had a fever this morning. Patient also reports because she was coughing so much she had emesis. She reports previous history of pneumonia in 2010. Thereafter she has not had any hospitalizations for pneumonia. She denies history of COPD and has never been prescribed inhalers or steroids for respiratory failure. Furthermore she reports central chest pain and chest pain the back that only comes along with coughing and deep inspiration. In the emergency room patient was found to be febrile and CTA showed acute bronchiolitis. Patient was treated as per sepsis protocol and at one point became hypotensive and a right IJ central line was placed. However patient's blood pressure improved with IV fluids and she did not need to be started on pressors. During my examination patient is calm, and not in any respiratory distress using 3 L oxygen. She is not on oxygen at home. Past Med Surg Social Fam HX - Past Medical History Medical history: hypertension, kidney stones, seizures, other Additional medical history: pancreatitis, cerebral aneurysm Psychiatric history: no psych history - Past Surgical History Surgical History: appendectomy, cholecystectomy, hysterectomy Additional surgical history: 4 brain surgeries. lithotripsy - Social History Smoking Status: Current every day smoker Smokeless Tobacco Status: No Alcohol use: none Drug use: none - Family History Mother Living Status: Hx Family Cardiac Disorders: Yes (Heart attack) Hx Family Neurologic Disorders: Yes (Alzhmier's) Father Living Status: Unknown Internal Medicine - H&P: Meds Gabapentin 600 mg PO BID 07/22/15 [History] NIFEdipine [Nifedical Xl] 30 mg PO HS 07/22/15 [History] Pravastatin Sodium 80 mg PO HS 07/22/15 [History] Trazodone HCl 150 mg PO HS 07/22/15 [History] clonazePAM [Clonazepam] 0.5 mg PO HS 07/22/15 [History] Ibuprofen [Motrin] 200 - 600 mg PO Q6HR PRN 03/05/17 [History] Oxycodone HCl/Acetaminophen [Percocet 5-325 mg Tablet] 1 each PO Q6H PRN #30 tablet 03/08/17 [Rx] Allergy/AdvReac Type Severity Reaction Status Date / Time No Known Allergies Allergy Verified 03/04/17 19:06 All Systems PM: A 10-system review of systems was performed and is negative for pertinent findings except as documented above in the HPI. Review of systems: Constitutional: Reports fever, chills HEENT: Denies headache, trauma, blurry vision, eye discharge, ear pain, ear discharge neck pain, sore throat, rhinorrhea Heart: Reports chest pain denies palpitations, LE edema Lungs: Reports shortness of breath cough Abdomen: Denies abdominal pain nausea vomiting diarrhea MSK: Denies back pain, falls, joint pain Kidney: Denies dysuria, hematuria Skin: Denies rash, ulcers Neuro: Denies numbness and tingling Psych: Reports axniety, depression - Constitutional Vitals: Temp Pulse Resp BP Pulse Ox 100.3 F H 89 20 108/59 95 11/30/18 14:14 11/30/18 16:37 11/30/18 15:32 11/30/18 16:37 11/30/18 16:08 Exam: General: pleasant, without distress HEENT: Head atraumatic, normocephalic, EOMI, PERRL, absent ear discharge or trauma, Moist Mucous Membranes, uvula midline Neck: nontender to palpation, absent lymphadenopathy, Cardiovascualr: Regular rate and rhythm with no murmur, absent gallops or rubs, absent pedal edema, radial pulses 2 out of 4 Lungs: Bilateral expiratory wheezing, diminished breath sounds and rhonchi. On 3 L oxygen coughing during my exam Abdomen: Soft nontender, nondistended positive bowel sounds, absent hepatomegaly Skin: warm and dry, absent rash, absent open wounds and nodules MSK: absent clubbing, cyanosis, joints without swelling Neuro: Cranial nerves II through XII intact, UE and LE sensation equal b ilaterally, UE and LEstrength 5/5, alert oriented 3, Psych: good insight and judgment, anxious Internal Med - H&P Results - Labs CBC & Chem 7: 11/30/18 12:07 11/30/18 12:07 Labs: Short CBC 11/30/18 Range/Units 12:07 WBC 11.0 (4.3-11.1) K/mcL Hgb 14.7 (11.5-15.4) g/dL Hct 42.4 (35.3-44.9) % Plt Count 254 (140-400) K/mcL Neutrophils # 8.2 (1.6-8.9) K/mcL BMP 11/30/18 12:07 Sodium 138 Potassium 3.8 Chloride 102 Carbon Dioxide 24 BUN 13 Creatinine 0.86 Glucose 129 H Calcium 9.1 Cardiac Enzymes 11/30/18 Range/Units 12:07 Troponin I < 0.03 (< 0.04) ng/mL Liver Function 11/30/18 Range/Units 12:07 Total Bilirubin 0.4 (0.3-1.0) mg/dL Direct Bilirubin 0.1 (0.0-0.2) mg/dL AST 18 (13-39) Units/L ALT 13 (7-52) Units/L Alkaline Phosphatase 79 (34-104) Units/L Albumin 4.2 (3.5-5.7) g/dL Urine 11/30/18 Range/Units 12:56 Urine Color Yellow (Yellow) Urine Clarity Slightly Hazy (Clear) Urine pH 6.0 (5.0-8.0) pH Units Ur Specific [place] 1.014 (1.010-1.025) Urine Protein Trace (Neg-Trace) mg/dL Urine Glucose (UA) Normal (Normal) mg/dL - Impressions ITS Impressions Chest X-Ray 11/30/18 11:19 IMPRESSION: Density overlapping the right medial border of the heart in the region of the medial aspect of the chest. This measures 3.9 x 3.1 cm. Although infiltrate is possible neoplasm has to be excluded. RECOMMENDATION: Chest CT. D/ / 11/30/2018 12:23:14 Catalina Almonte MD / toña Interpreting Provider: Catalina Almonte MD Chest CTA 11/30/18 12:19 IMPRESSION: No pulmonary emboli are identified. The mass seen on chest x-ray corresponds to a prominent epicardial fat pad, with no underlying lung mass identified. Scattered ground-glass change with some areas of bronchial thickening and tree-in-bud like nodules seen suspicious for acute bronchiolitis. There also some enlarged right hilar and mediastinal lymph nodes which may be reactive. Follow-up CT recommended as below, where lymphadenopathy can be reassessed. There is a focal subpleural 5 mm pulmonary nodule in the left upper lobe for which further evaluation is recommended as as below. Repeat imaging of the chest in 3 months may be beneficial to document resolution, as well as re-evaluation of persistent pulmonary nodules that should be followed up based on Fleischner criteria. The largest nodule seen that may not be related to possible bronchiolitis measures approximately 5 mm, where an optional scan would be recommended in 1 year. Questionable focal ovoid masslike area of enhancement measuring 11.8 x 9.2 mm in the right mid kidney, for which further evaluation is recommended with renal mass MRI versus CT study. Focal nodule extending off the inferior aspect of the left thyroid lobe versus an enlarged mediastinal lymph node measuring 13.7 x 9.9 mm. There is also a 4 mm hypodense nodule in the left thyroid lobe. Recommend further evaluation with ultrasound given the questionable nature of this finding. RECOMMENDATIONS: Managing Incidental Thyroid Nodule Detected at CT or MRI or US 1. Further evaluation by thyroid Ultrasound recommended for these incidental nodules: Patient Age 18 years or less - Nodule of any size Patient Age 19-34 years old - Nodule 1 cm in size or greater Patient Age 35 years or more - Nodule 1.5 cm in size or greater 2. Follow up thyroid ultrasound also recommend in these scenarios - Solitary nodule with high risk imaging features (locally invasive nodule or suspicious lymph nodes) - Heterogeneous, enlarged thyroid gland. - Increased uptake on PET 3. No further imaging is recommended in the following scenarios - Any nodule not meeting above criteria. - Those patients with limited life expectancy or significant Co-morbidities. Note: These recommendations do not apply to pts. w/ increased risk for thyroid cancer or pts. with symptomatic thyroid disease. Recommendations for f/u of Incidental Thyroid Nodules (ITN) found on CT, MR, NM and Extrathyroidal US are based upon the ACR white paper and Beasley 3-tiered system for managing ITNs: J Am Shaneka Radiol. 2015 Sep;12(2): 143-50 D/ / Naveed Morales MD / Naveed Morales MD Interpreting Provider: Naveed Morales MD Chest X-Ray 11/30/18 15:11 IMPRESSION: New right jugular central line without evident complication. Mild diffuse interstitial lung markings throughout both lungs new or increased from exam earlier today. The rapid change would favor interstitial pulmonary edema either from volume overload or mild congestive heart failure. D/ / Kaveh Moseley MD / Kaveh Moseley MD Interpreting Provider: Kaveh Moseley MD - Assessment and Plan (1) Sepsis Current Visit: Yes Status: Acute Assessment and plan: Patient is afebrile, tachypneic, tachycardic on admission Etiology acute bronchiolitis Patient received 3 L normal saline per sepsis protocol Lactic acid is 1 Initially she was hypotensive and had a right internal jugular venous catheter placed however pressors were nonstarter as her blood pressure normalized and her map during my examination was 71 We will remove the CBC catheter if patient is stable in the next 24 Qualifiers: Sepsis type: sepsis due to unspecified organism Qualified Code(s): A41.9 - Sepsis, unspecified organism (2) Acute respiratory failure with hypoxia Current Visit: Yes Status: Acute Assessment and plan: Secondary to acute bronchiolitis Continue supplemental oxygen, DuoNeb's, steroids (3) Acute bronchiolitis Current Visit: Yes Status: Acute Assessment and plan: Unclear etiology Presented with cough, progressive shortness of breath, fever and requiring oxygen supplementation CTA showed acute bronchiolitis Patient received azithromycin and ceftriaxone on admission Influenza swab negative Blood cultures obtained Order sputum culture We will obtain refer infection panel, start patient on Zosyn, IV Solu-Medrol, DuoNeb's and continue oxygen therapy. Qualifiers: Bronchiolitis organism: unspecified organism Qualified Code(s): J21.9 - Acute bronchiolitis, unspecified (4) Hyperlipidemia Current Visit: Yes Status: Acute Assessment and plan: Continue home atorvastatin Qualifiers: Hyperlipidemia type: pure hyperglyceridemia Qualified Code(s): E78.1 - Pure hyperglyceridemia (5) Pulmonary nodule Current Visit: Yes Status: Acute Assessment and plan: CTA shows a 5 mm pulmonary nodule which will need to be followed upon in one year with a repeat CT scan. (6) Nodule of kidney Current Visit: Yes Status: Acute Assessment and plan: CTA showed a ovoid masslike area of enhancement measuring 11.8 x 9.2 mm which will need outpatient MRI versus CT study for further evaluation. (7) Nodule of left lobe of thyroid gland Current Visit: Yes Status: Acute Assessment and plan: CT of the chest also showed a focal nodule extending off the inferior aspect of the left thyroid lobe versus an enlarged mediastinal lymph node measuring 13.79.9 and a 4 mm hypodense nodule in the left thyroid lobe This will need outpatient ultrasound follow-up. (8) HTN (hypertension) Current Visit: Yes Status: Chronic Assessment and plan: Holding home medications patient was hypotension on admission Qualifiers: Hypertension type: essential hypertension Qualified Code(s): I10 - Essential (primary) hypertension (9) DVT prophylaxis Current Visit: Yes Status: Acute Assessment and plan: Heparin subcutaneous (10) Nicotine dependence Current Visit: Yes Status: Chronic Assessment and plan: Patient educated on smoking cessation. Qualifiers: Nicotine product type: cigarettes Substance use status: unspecified nicotine-induced disorder Qualified Code(s): F17.219 - Nicotine dependence, cigarettes, with unspecified nicotine-induced disorders - Time Spent With Patient Total time spent is greater than 50% in coordination of care (as documented) at patient's floor/unit and/or counseling patient: <Logan Story - Last Filed: 11/30/18 17:54> Date of Encounter: 11/30/18 All Systems PM: A 10-system review of systems was performed and is negative for pertinent findings except as documented above in the HPI. Internal Med - H&P Results - Labs CBC & Chem 7: 11/30/18 12:07 11/30/18 12:07 Labs: Short CBC 11/30/18 Range/Units 12:07 WBC 11.0 (4.3-11.1) K/mcL Hgb 14.7 (11.5-15.4) g/dL Hct 42.4 (35.3-44.9) % Plt Count 254 (140-400) K/mcL Neutrophils # 8.2 (1.6-8.9) K/mcL BMP 11/30/18 12:07 Sodium 138 Potassium 3.8 Chloride 102 Carbon Dioxide 24 BUN 13 Creatinine 0.86 Glucose 129 H Calcium 9.1 Cardiac Enzymes 11/30/18 Range/Units 12:07 Troponin I < 0.03 (< 0.04) ng/mL Liver Function 11/30/18 Range/Units 12:07 Total Bilirubin 0.4 (0.3-1.0) mg/dL Direct Bilirubin 0.1 (0.0-0.2) mg/dL AST 18 (13-39) Units/L ALT 13 (7-52) Units/L Alkaline Phosphatase 79 (34-104) Units/L Albumin 4.2 (3.5-5.7) g/dL Urine 11/30/18 Range/Units 12:56 Urine Color Yellow (Yellow) Urine Clarity Slightly Hazy (Clear) Urine pH 6.0 (5.0-8.0) pH Units Ur Specific [place] 1.014 (1.010-1.025) Urine Protein Trace (Neg-Trace) mg/dL Urine Glucose (UA) Normal (Normal) mg/dL - Impressions ITS Impressions Chest X-Ray 11/30/18 11:19 IMPRESSION: Density overlapping the right medial border of the heart in the region of the medial aspect of the chest. This measures 3.9 x 3.1 cm. Although infiltrate is possible neoplasm has to be excluded. RECOMMENDATION: Chest CT. D/ / 11/30/2018 12:23:14 Catalina Almonte MD / toña Interpreting Provider: Catalina Almonte MD Chest CTA 11/30/18 12:19 IMPRESSION: No pulmonary emboli are identified. The mass seen on chest x-ray corresponds to a prominent epicardial fat pad, with no underlying lung mass identified. Scattered ground-glass change with some areas of bronchial thickening and tree-in-bud like nodules seen suspicious for acute bronchiolitis. There also some enlarged right hilar and mediastinal lymph nodes which may be reactive. Follow-up CT recommended as below, where lymphadenopathy can be reassessed. There is a focal subpleural 5 mm pulmonary nodule in the left upper lobe for which further evaluation is recommended as as below. Repeat imaging of the chest in 3 months may be beneficial to document resolution, as well as re-evaluation of persistent pulmonary nodules that should be followed up based on Fleischner criteria. The largest nodule seen that may not be related to possible bronchiolitis measures approximately 5 mm, where an optional scan would be recommended in 1 year. Questionable focal ovoid masslike area of enhancement measuring 11.8 x 9.2 mm in the right mid kidney, for which further evaluation is recommended with renal mass MRI versus CT study. Focal nodule extending off the inferior aspect of the left thyroid lobe versus an enlarged mediastinal lymph node measuring 13.7 x 9.9 mm. There is also a 4 mm hypodense nodule in the left thyroid lobe. Recommend further evaluation with ultrasound given the questionable nature of this finding. RECOMMENDATIONS: Managing Incidental Thyroid Nodule Detected at CT or MRI or US 1. Further evaluation by thyroid Ultrasound recommended for these incidental nodules: Patient Age 18 years or less - Nodule of any size Patient Age 19-34 years old - Nodule 1 cm in size or greater Patient Age 35 years or more - Nodule 1.5 cm in size or greater 2. Follow up thyroid ultrasound also recommend in these scenarios - Solitary nodule with high risk imaging features (locally invasive nodule or suspicious lymph nodes) - Heterogeneous, enlarged thyroid gland. - Increased uptake on PET 3. No further imaging is recommended in the following scenarios - Any nodule not meeting above criteria. - Those patients with limited life expectancy or significant Co-morbidities. Note: These recommendations do not apply to pts. w/ increased risk for thyroid cancer or pts. with symptomatic thyroid disease. Recommendations for f/u of Incidental Thyroid Nodules (ITN) found on CT, MR, NM and Extrathyroidal US are based upon the ACR white paper and Beasley 3-tiered system for managing ITNs: J Jorge Alberto Shaneka Radiol. 2015 Sep;12(2): 143-50 D/ / Naveed Morales MD / Naveed Morales MD Interpreting Provider: Naveed Morales MD Chest X-Ray 11/30/18 15:11 IMPRESSION: New right jugular central line without evident complication. Mild diffuse interstitial lung markings throughout both lungs new or increased from exam earlier today. The rapid change would favor interstitial pulmonary edema either from volume overload or mild congestive heart failure. D/ / Kaveh Moseley MD / Kaveh Moseley MD Interpreting Provider: Kaveh Moseley MD - Time Spent With Patient Total time spent is greater than 50% in coordination of care (as documented) at patient's floor/unit and/or counseling patient: - Attending Attestation Patient seen and examined independently. Objective data has been reviewed including labs, micro, imaging, and ECG. I agree with the plan of care as documented above by the resident, with the following comments: Severe sepsis responsive to fluid challenge, current SBP 110s. Lactate wnl. CVC placed due to hypotension and suspected need for pressors, which were not started due to improvement. Presumed source is respiratory, with recent cough and fevers, and bronchiolitis on CTA raises concern for viral source. Broaden abx coverage from Rocephin to Zosyn for now, is also s/p azithro in ED for atypical coverage, and check procalcitonin and RVP. Hold home antihypertensives. Will add steroids for wheezing as likely has COPD, is chronic smoker and pt states she'll use this as opportunity to quit. Will monitor for signs of fluid overload as repeat CXR for CVC placement shows interval development of pulmonary edema, and consider diuresis if needed and if pressures maintain. Plan removal of CVC tomorrow if pressures stable.
[2018-11-30] MEDS ORDERED: Acetaminophen 325 MG TABLET PO PRN (17:08)
[2018-11-30] MEDS ORDERED: Ondansetron ODT 4 MG TAB.RAPDIS SL PRN (17:08)
[2018-11-30] MEDS ORDERED: Naloxone 0.4 MG/ML INJ IVP PRN (17:08)
[2018-11-30] MEDS: Ipratropium/Albuterol Neb 3 ML IH SCH ×2 (18:00→22:37)
[2018-11-30] MEDS: Piperacillin/Tazobactam 3.375 GM in 0.9 % Sodium Chloride Mini Bag 100 ML IVPB SCH (18:55)
--- NOTE | 2018-11-30 20:38 | Electrocardiograph Report ---
[place] [employer] [facility] Test Date: 2018-11-30 Pat Name: Tiffanie Dalal Department: EXAM5 Room: 2N11 Gender: F [employer]ry Hand: : 1950 Requested By: Yogi Shepherd Order Number: [id number] Reading MD: Carlos Sanchez Measurements Intervals [place] Rate: 119 P: 75 MA: 137 QRS: 71 QRSD: 75 T: 62 QT: 301 QTc: 424 Interpretive Statements Sinus tachycardia Probable left atrial enlargement Electronically Signed On 11-30-2018 20:37:31 EDT by Carlos Sanchez
[2018-11-30] MEDS: *HR* Heparin 5,000 UNIT/ML VIAL SQ SCH (21:15)
[2018-11-30] MEDS: Gabapentin 300 MG CAPSULE PO SCH (21:16)
[2018-11-30] MEDS: methylPREDNISolone 125 MG/2 ML VIAL IVP SCH (21:16)
[2018-11-30] MEDS: Benzonatate 100 MG CAPSULE PO PRN (21:32)
[2018-11-30 21:46] LABS: Adenovirus Not Detected (Not Detect); Bordetella Pertussis Not Detected (Not Detect); Chlamydophila pneumoniae Not Detected (Not Detect); Coronavirus 229E Not Detected (Not Detect); Coronavirus HKU1 Not Detected (Not Detect); Coronavirus NL63 Not Detected (Not Detect); Coronavirus OC43 Not Detected (Not Detect); Human Metapneumovirus DETECTED (Not Detect); Human Rhinovirus/Enterovirus Not Detected (Not Detect); Influenza A Subtype 2009 H1 Not Detected (Not Detect); Influenza A Untypeable Not Detected (Not Detect); Influenza B Not Detected (Not Detect); Mycoplasma pneumoniae Not Detected (Not Detect); Parainfluenza Virus 1 Not Detected (Not Detect); Parainfluenza Virus 2 Not Detected (Not Detect); Parainfluenza Virus 3 Not Detected (Not Detect); Parainfluenza Virus 4 Not Detected (Not Detect); Respiratory Syncytial Virus Not Detected (Not Detect)
[2018-11-30] MEDS: traZODone 50 MG TABLET PO SCH (22:50)
[2018-11-30] MEDS: clonazePAM 0.5 MG TABLET PO SCH (22:50)
[2018-12-01] MEDS ORDERED: GuaiFENesin Liq 200 MG/10 ML UDC PO PRN (00:14)
[2018-12-01] MEDS: methylPREDNISolone 125 MG/2 ML VIAL IVP SCH (03:45)
[2018-12-01] MEDS: Piperacillin/Tazobactam 3.375 GM in 0.9 % Sodium Chloride Mini Bag 100 ML IVPB SCH ×2 (03:47→10:28)
[2018-12-01] MEDS: Ipratropium/Albuterol Neb 3 ML IH SCH ×4 (04:33→22:58)
[2018-12-01] MEDS: *HR* Heparin 5,000 UNIT/ML VIAL SQ SCH ×3 (05:34→21:04)
[2018-12-01 05:58] LABS: Basophils % 0.1 %; Hematocrit 36.2 % (35.3-44.9); Immature Granulocytes % 0.4 % (0-4); Lymphocytes # 0.8 K/mcL (0.6-4.6); Lymphocytes % 8.7 %; Mean Corpuscular HGB Conc 33.4 g/dL (31.6-35.5); Mean Corpuscular Hemoglobin 29.6 pg (28.0-33.3); Mean Corpuscular Volume 88.5 fL (83.0-100.0); Monocytes # 0.2 K/mcL (0.0-1.3); Neutrophils # 7.9 K/mcL (1.6-8.9); Platelet Count 203 K/mcL (140-400); Red Blood Count 4.09 M/mcL (3.82-4.97); Red Cell Distribution Width 13.5 % (11.5-14.5); Segmented Neutrophils % 88.8 %
[2018-12-01 06:01] LABS: Hemoglobin 12.1 g/dL (11.5-15.4)
[2018-12-01 07:07] LABS: BUN/Creatinine Ratio 17 (6-26); Blood Urea Nitrogen 10 mg/dL (8-23); Carbon Dioxide 22 mEq/L (23-29); Chloride 107 mEq/L (98-107); Glucose 204 mg/dL (70-105); Osmolality,Calculated 291 (280-300); Sodium 138 mEq/L (136-145); eGFR For Non-African Americans > 60 (> 60)
[2018-12-01] MEDS: Benzonatate 100 MG CAPSULE PO PRN (08:31)
[2018-12-01] MEDS: Gabapentin 300 MG CAPSULE PO SCH ×2 (08:31→21:05)
--- NOTE | 2018-12-01 09:21 | Internal Med Progress Note ---
<Henry Kelley - Last Filed: 12/01/18 10:30> Hospitalist Progress Note - Encounter Date of Encounter: 12/01/18 Time of Encounter: 10:30 - Subjective Interval History: NO acute events overnight. Patient stayed normotensive. reports cough and sputum production which has improved. Denies chest pain, abdominal pain. Able to ambulate to and from bathroom without assist. - Exam Vitals: Temp Pulse Resp BP Pulse Ox 98.0 F 99 16 129/70 91 12/01/18 07:29 12/01/18 07:29 12/01/18 07:29 12/01/18 07:29 12/01/18 07:29 Exam: General: pleasant, without distress Cardiovascualr: Regular rate and rhythm with no murmur, absent gallops or rubs, absent pedal edema, radial pulses 2 out of 4 Lungs: Bilateral coarse and diminished breath sounds. On 3 L oxygen coughing during my exam Abdomen: Soft nontender, nondistended positive bowel sounds, absent hepatomegaly Skin: warm and dry, absent rash, absent open wounds and nodules MSK: absent clubbing, cyanosis, joints without swelling Neuro: Cranial nerves II through XII intact, UE and LE sensation equal bilaterally, UE and LEstrength 5/5, alert oriented 3, Psych: good insight and judgment - Assessment and Plan (1) Sepsis Current Visit: Yes Status: Resolved Assessment and Plan: afebrile, wbc WNL, not tachypenic still tachycardic 2nd to humanmetapneumovirus (2) Acute respiratory failure with hypoxia Current Visit: Yes Status: Acute Assessment and Plan: 2nd to humanmetapneumovirus, COPD respiratory status improved will wean down O2 to keep above 88 percent transition to prednisone 40mg daily continue talia would recommend outpatient PFTS O2 qualification test tomorrow. likely d/c tomorrow (3) Acute bronchiolitis Current Visit: Yes Status: Acute Assessment and Plan: will transition from zosyn to augmentin. otherwise plan as above (4) Hyperlipidemia Current Visit: Yes Status: Acute Assessment and Plan: continue statin (5) Pulmonary nodule Current Visit: Yes Status: Acute Assessment and Plan: outpatient follow up (6) Nodule of kidney Current Visit: Yes Status: Acute (7) Nodule of left lobe of thyroid gland Current Visit: Yes Status: Acute Assessment and Plan: outpatient follow up (8) HTN (hypertension) Current Visit: Yes Status: Chronic Assessment and Plan: continue anti-hypertensives (9) DVT prophylaxis Current Visit: Yes Status: Acute Assessment and Plan: heparin SQ (10) Nicotine dependence Current Visit: Yes Status: Chronic - Time Spent with Patient Total time spent is greater than 50% in coordination of care (as documented) at patient's floor/unit and/or counseling patient: Internal Medicine: Result - Labs CBC & Chem 7: 12/01/18 05:45 12/01/18 05:45 Labs: Short CBC 11/30/18 12/01/18 Range/Units 12:07 05:45 WBC 11.0 8.9 (4.3-11.1) K/mcL Hgb 14.7 12.1 D (11.5-15.4) g/dL Hct 42.4 36.2 (35.3-44.9) % Plt Count 254 203 (140-400) K/mcL Neutrophils # 8.2 7.9 (1.6-8.9) K/mcL BMP 11/30/18 12/01/18 12:07 05:45 Sodium 138 138 Potassium 3.8 3.0 L Chloride 102 107 Carbon Dioxide 24 22 L BUN 13 10 Creatinine 0.86 0.58 L Glucose 129 H 204 H Calcium 9.1 8.0 L Cardiac Enzymes 11/30/18 Range/Units 12:07 Troponin I < 0.03 (< 0.04) ng/mL Liver Function 11/30/18 Range/Units 12:07 Total Bilirubin 0.4 (0.3-1.0) mg/dL Direct Bilirubin 0.1 (0.0-0.2) mg/dL AST 18 (13-39) Units/L ALT 13 (7-52) Units/L Alkaline Phosphatase 79 (34-104) Units/L Albumin 4.2 (3.5-5.7) g/dL Urine 11/30/18 Range/Units 12:56 Urine Color Yellow (Yellow) Urine Clarity Slightly Hazy (Clear) Urine pH 6.0 (5.0-8.0) pH Units Ur Specific Sterling 1.014 (1.010-1.025) Urine Protein Trace (Neg-Trace) mg/dL Urine Glucose (UA) Normal (Normal) mg/dL - ABG Interpretation ABG results: PT/INR, D-dimer PT 11.6 Seconds (9.4-12.1) 11/30/18 12:07 - Impressions Impressions Chest X-Ray 11/30/18 11:19 IMPRESSION: Density overlapping the right medial border of the heart in the region of the medial aspect of the chest. This measures 3.9 x 3.1 cm. Although infiltrate is possible neoplasm has to be excluded. RECOMMENDATION: Chest CT. D/ / 11/30/2018 12:23:14 Catalina Almonte MD / toña Interpreting Provider: Catalina Almonte MD Chest CTA 11/30/18 12:19 IMPRESSION: No pulmonary emboli are identified. The mass seen on chest x-ray corresponds to a prominent epicardial fat pad, with no underlying lung mass identified. Scattered ground-glass change with some areas of bronchial thickening and tree-in-bud like nodules seen suspicious for acute bronchiolitis. There also some enlarged right hilar and mediastinal lymph nodes which may be reactive. Follow-up CT recommended as below, where lymphadenopathy can be reassessed. There is a focal subpleural 5 mm pulmonary nodule in the left upper lobe for which further evaluation is recommended as as below. Repeat imaging of the chest in 3 months may be beneficial to document resolution, as well as re-evaluation of persistent pulmonary nodules that should be followed up based on Fleischner criteria. The largest nodule seen that may not be related to possible bronchiolitis measures approximately 5 mm, where an optional scan would be recommended in 1 year. Questionable focal ovoid masslike area of enhancement measuring 11.8 x 9.2 mm in the right mid kidney, for which further evaluation is recommended with renal mass MRI versus CT study. Focal nodule extending off the inferior aspect of the left thyroid lobe versus an enlarged mediastinal lymph node measuring 13.7 x 9.9 mm. There is also a 4 mm hypodense nodule in the left thyroid lobe. Recommend further evaluation with ultrasound given the questionable nature of this finding. RECOMMENDATIONS: Managing Incidental Thyroid Nodule Detected at CT or MRI or US 1. Further evaluation by thyroid Ultrasound recommended for these incidental nodules: Patient Age 18 years or less - Nodule of any size Patient Age 19-34 years old - Nodule 1 cm in size or greater Patient Age 35 years or more - Nodule 1.5 cm in size or greater 2. Follow up thyroid ultrasound also recommend in these scenarios - Solitary nodule with high risk imaging features (locally invasive nodule or suspicious lymph nodes) - Heterogeneous, enlarged thyroid gland. - Increased uptake on PET 3. No further imaging is recommended in the following scenarios - Any nodule not meeting above criteria. - Those patients with limited life expectancy or significant Co-morbidities. Note: These recommendations do not apply to pts. w/ increased risk for thyroid cancer or pts. with symptomatic thyroid disease. Recommendations for f/u of Incidental Thyroid Nodules (ITN) found on CT, MR, NM and Extrathyroidal US are based upon the ACR white paper and Beasley 3-tiered system for managing ITNs: J Am Shaneka Radiol. 2015 Sep;12(2): 143-50 D/ / aNveed Morales MD / Naveed Morales MD Interpreting Provider: Naveed Morales MD Chest X-Ray 11/30/18 15:11 IMPRESSION: New right jugular central line without evident complication. Mild diffuse interstitial lung markings throughout both lungs new or increased from exam earlier today. The rapid change would favor interstitial pulmonary edema either from volume overload or mild congestive heart failure. D/ / Kaveh Moseley MD / Kaveh Moseley MD Interpreting Provider: Kaveh Moseley MD Consult Discharge Plan - Plan Referrals: Joanna Degroot, [facility] [Primary Care Provider] - 12/10/18 3:00 pm <Logan Story - Last Filed: 12/01/18 14:34> Hospitalist Progress Note - Encounter Date of Encounter: 12/01/18 Internal Medicine: Result - Labs CBC & Chem 7: 04/09/19 05:45 12/01/18 05:45 Labs: Short CBC 12/01/18 Range/Units 05:45 WBC 8.9 (4.3-11.1) K/mcL Hgb 12.1 D (11.5-15.4) g/dL Hct 36.2 (35.3-44.9) % Plt Count 203 (140-400) K/mcL Neutrophils # 7.9 (1.6-8.9) K/mcL BMP 12/01/18 05:45 Sodium 138 Potassium 3.0 L Chloride 107 Carbon Dioxide 22 L BUN 10 Creatinine 0.58 L Glucose 204 H Calcium 8.0 L - ABG Interpretation ABG results: PT/INR, D-dimer PT 11.6 Seconds (9.4-12.1) 11/30/18 12:07 - Impressions Impressions Chest X-Ray 11/30/18 15:11 IMPRESSION: New right jugular central line without evident complication. Mild diffuse interstitial lung markings throughout both lungs new or increased from exam earlier today. The rapid change would favor interstitial pulmonary edema either from volume overload or mild congestive heart failure. D/ / Kaveh Moseley MD / Kaveh Moseley MD Interpreting Provider: Kaveh Moseley MD - Attending Attestation Patient seen and examined independently, including review of objective data including labs. I agree with plan of care as documented above by the resident with the following comments: Patient improved markedly from presentation re hemodynamics and respiratory symptoms. RVP positive for hMPV, likely viral etiology. Remove central line. De- escalate from IV to PO abx and steroids. Encourage IS and ambulation. Remove tele and move to med/surg. Plan d/c tomorrow if passes walk test. <Henry Kelley - Last Filed: 12/01/18 10:30> (1) Sepsis Qualifiers: Sepsis type: sepsis due to unspecified organism Qualified Code(s): A41.9 - Sepsis, unspecified organism (3) Acute bronchiolitis Qualifiers: Bronchiolitis organism: human metapneumovirus Qualified Code(s): J21.1 - Acute bronchiolitis due to human metapneumovirus (4) Hyperlipidemia Qualifiers: Hyperlipidemia type: pure hyperglyceridemia Qualified Code(s): E78.1 - Pure hyperglyceridemia (8) HTN (hypertension) Qualifiers: Hypertension type: essential hypertension Qualified Code(s): I10 - Essential (primary) hypertension (10) Nicotine dependence Qualifiers: Nicotine product type: cigarettes Substance use status: unspecified nicotine- induced disorder Qualified Code(s): F17.219 - Nicotine dependence, cigarettes, with unspecified nicotine-induced disorders
[2018-12-01] MEDS: GuaiFENesin Liq 200 MG/10 ML UDC PO PRN ×2 (10:28→15:19)
[2018-12-01] MEDS: traZODone 50 MG TABLET PO SCH (21:04)
[2018-12-01] MEDS: NIFEdipine XL (24 HR) 30 MG TAB.ER.24 PO SCH (21:04)
[2018-12-01] MEDS: clonazePAM 0.5 MG TABLET PO SCH (21:04)
[2018-12-01] MEDS: Promethazine Syrup 6.25 MG/5 ML PO PRN (21:04)
[2018-12-02] MEDS: Ipratropium/Albuterol Neb 3 ML IH SCH ×4 (04:29→22:33)
[2018-12-02] MEDS: *HR* Heparin 5,000 UNIT/ML VIAL SQ SCH ×3 (05:10→20:30)
[2018-12-02 07:29] LABS: BUN/Creatinine Ratio 13 (6-26); Blood Urea Nitrogen 8 mg/dL (8-23); Calcium 8.6 mg/dL (8.6-10.3); Carbon Dioxide 26 mEq/L (23-29); Chloride 103 mEq/L (98-107); Glucose 120 mg/dL (70-105); Osmolality,Calculated 292 (280-300); Potassium 3.1 mEq/L (3.5-5.1); Sodium 141 mEq/L (136-145); eGFR For Non-African Americans > 60 (> 60)
[2018-12-02] MEDS ORDERED: Potassium Chloride Elixir 20 MEQ/15 ML UDC PO ONE (07:43)
--- NOTE | 2018-12-02 07:44 | Internal Med Progress Note ---
<Henry Kelley - Last Filed: 12/02/18 09:18> Hospitalist Progress Note - Encounter Date of Encounter: 12/02/18 Time of Encounter: 09:18 - Subjective Interval History: Patient was febrile overnight with the peak temperature of 101.5. This morning when I entered the room she was ambulating independently and going to the b athroom. - Exam Vitals: Temp Pulse Resp BP Pulse Ox 99.1 F 97 19 110/56 90 12/02/18 07:32 12/02/18 07:32 12/02/18 07:32 12/02/18 07:32 12/02/18 07:32 Exam: General: pleasant, without distress Cardiovascualr: Regular rate and rhythm with no murmur, absent gallops or rubs, absent pedal edema, radial pulses 2 out of 4 Lungs: Bilateral coarse and diminished breath sounds. On 3 L oxygen coughing during my exam Abdomen: Soft nontender, nondistended positive bowel sounds, absent hepatomegaly Skin: warm and dry, absent rash, absent open wounds and nodules MSK: absent clubbing, cyanosis, joints without swelling Neuro: Cranial nerves II through XII intact, UE and LE sensation equal bilaterally, UE and LEstrength 5/5, alert oriented 3, Psych: good insight and judgment - Assessment and Plan (1) Sepsis Current Visit: Yes Status: Acute Assessment and Plan: Febrile, tachycardic Secondary to human metaPneumovirus (2) Acute respiratory failure with hypoxia Current Visit: Yes Status: Acute Assessment and Plan: 2nd to humanmetapneumovirus, COPD respiratory status improved but patient febrile overnight will wean down O2 to keep above 88 percent continue prednisone 40mg daily continue talia would recommend outpatient PFTS O2 qualification test today (3) Acute bronchiolitis Current Visit: Yes Status: Acute Assessment and Plan: Patient was transitioned from Zosyn to Augmentin yesterday. However she did become febrile overnight We will broaden coverage by restarting Zosyn today. We will add MRSA surveillance screen and await pro-calcitonin results. Blood cultures continue to be negative. Sputum culture pending. (4) Hyperlipidemia Current Visit: Yes Status: Acute Assessment and Plan: Continue atorvastatin (5) Pulmonary nodule Current Visit: Yes Status: Acute Assessment and Plan: CTA shows a 5 mm pulmonary nodule which will need to be followed upon in one year with a repeat CT scan. (6) Nodule of kidney Current Visit: Yes Status: Acute Assessment and Plan: CTA showed a ovoid masslike area of enhancement measuring 11.8 x 9.2 mm which will need outpatient MRI versus CT study for further evaluation. (7) Nodule of left lobe of thyroid gland Current Visit: Yes Status: Acute Assessment and Plan: CT of the chest also showed a focal nodule extending off the inferior aspect of the left thyroid lobe versus an enlarged mediastinal lymph node measuring 13.79.9 and a 4 mm hypodense nodule in the left thyroid lobe This will need outpatient ultrasound follow-up. (8) HTN (hypertension) Current Visit: Yes Status: Chronic Assessment and Plan: Continue nifedipine. (9) DVT prophylaxis Current Visit: Yes Status: Acute Assessment and Plan: Heparin subcutaneous (10) Nicotine dependence Current Visit: Yes Status: Chronic - Time Spent with Patient Total time spent is greater than 50% in coordination of care (as documented) at patient's floor/unit and/or counseling patient: Internal Medicine: Result - Labs CBC & Chem 7: 12/01/18 05:45 12/02/18 06:06 Labs: BMP 12/02/18 06:06 Sodium 141 Potassium 3.1 L Chloride 103 Carbon Dioxide 26 BUN 8 Creatinine 0.60 Glucose 120 H Calcium 8.6 - ABG Interpretation ABG results: PT/INR, D-dimer PT 11.6 Seconds (9.4-12.1) 11/30/18 12:07 Consult Discharge Plan - Plan Referrals: Joanna Degroot, [facility] [Primary Care Provider] - 12/10/18 3:00 pm <Bob Jackson - Last Filed: 12/02/18 15:31> Hospitalist Progress Note - Encounter Date of Encounter: 12/02/18 - Exam Vitals: Temp Pulse Resp BP Pulse Ox 98.5 F 84 18 117/69 93 12/02/18 11:24 12/02/18 11:24 12/02/18 11:43 12/02/18 11:24 12/02/18 11:43 - Time Spent with Patient Total time spent is greater than 50% in coordination of care (as documented) at patient's floor/unit and/or counseling patient: Internal Medicine: Result - Labs CBC & Chem 7: 12/01/18 05:45 12/02/18 06:06 Labs: BMP 12/02/18 06:06 Sodium 141 Potassium 3.1 L Chloride 103 Carbon Dioxide 26 BUN 8 Creatinine 0.60 Glucose 120 H Calcium 8.6 - ABG Interpretation ABG results: PT/INR, D-dimer PT 11.6 Seconds (9.4-12.1) 11/30/18 12:07 - Attending Attestation I examined this patient and my medical decision-making was reviewed with the Resident Physician. I agree with the documented findings, disposition and treatment plan as described except to the extent set forth below. <Henry Kelley - Last Filed: 12/02/18 09:18> (1) Sepsis Qualifiers: Sepsis type: sepsis due to unspecified organism Qualified Code(s): A41.9 - Sepsis, unspecified organism (3) Acute bronchiolitis Qualifiers: Bronchiolitis organism: human metapneumovirus Qualified Code(s): J21.1 - Acute bronchiolitis due to human metapneumovirus (4) Hyperlipidemia Qualifiers: Hyperlipidemia type: pure hyperglyceridemia Qualified Code(s): E78.1 - Pure hyperglyceridemia (8) HTN (hypertension) Qualifiers: Hypertension type: essential hypertension Qualified Code(s): I10 - Essential (primary) hypertension (10) Nicotine dependence Qualifiers: Nicotine product type: cigarettes Substance use status: unspecified nicotine- induced disorder Qualified Code(s): F17.219 - Nicotine dependence, cigarettes, with unspecified nicotine-induced disorders
[2018-12-02] MEDS: predniSONE 20 MG TABLET PO SCH (08:33)
[2018-12-02] MEDS: Gabapentin 300 MG CAPSULE PO SCH ×2 (08:33→20:31)
[2018-12-02] MEDS: Piperacillin/Tazobactam 3.375 GM in 0.9 % Sodium Chloride Mini Bag 100 ML IVPB SCH ×4 (08:34→23:50)
[2018-12-02] MEDS: Promethazine Syrup 6.25 MG/5 ML PO PRN ×2 (08:54→18:37)
[2018-12-02] MEDS: clonazePAM 0.5 MG TABLET PO SCH (20:31)
[2018-12-02] MEDS: NIFEdipine XL (24 HR) 30 MG TAB.ER.24 PO SCH (20:31)
[2018-12-02] MEDS: traZODone 50 MG TABLET PO SCH (20:31)
[2018-12-03] MEDS: Ipratropium/Albuterol Neb 3 ML IH SCH ×3 (03:49→15:44)
[2018-12-03] MEDS: *HR* Heparin 5,000 UNIT/ML VIAL SQ SCH (05:25)
[2018-12-03] MEDS ORDERED: Potassium Chloride Elixir 20 MEQ/15 ML UDC PO ONE (08:02)
[2018-12-03] MEDS: predniSONE 20 MG TABLET PO SCH (09:33)
[2018-12-03] MEDS: Gabapentin 300 MG CAPSULE PO SCH (09:33)
[2018-12-03] MEDS: Piperacillin/Tazobactam 3.375 GM in 0.9 % Sodium Chloride Mini Bag 100 ML IVPB SCH (09:34)
[2018-12-03 09:43] LABS: Basophils % 0.2 %; Hematocrit 40.3 % (35.3-44.9); Hemoglobin 13.2 g/dL (11.5-15.4); Immature Granulocytes % 0.6 % (0-4); Lymphocytes # 2.6 K/mcL (0.6-4.6); Lymphocytes % 27.5 %; Mean Corpuscular HGB Conc 32.8 g/dL (31.6-35.5); Mean Corpuscular Hemoglobin 28.7 pg (28.0-33.3); Mean Corpuscular Volume 87.6 fL (83.0-100.0); Mean Platelet Volume 10.3 fL (9.4-12.4); Monocytes # 0.3 K/mcL (0.0-1.3); Monocytes % 3.1 %; Platelet Count 250 K/mcL (140-400); Red Cell Distribution Width 13.6 % (11.5-14.5); Segmented Neutrophils % 68.6 %
--- NOTE | 2018-12-03 09:50 | Discharge Summary ---
<Henry Kelley - Last Filed: 12/03/18 09:45> - NOTES TO OUTPATIENT PROVIDER Notes to Outpatient Provider: Recommended patient have PFTs.CTA shows a 5 mm pulmonary nodule which will need to be followed upon in one year with a repeat CT scan.CTA showed a ovoid masslike area of enhancement measuring 11.8 x 9.2 mm which will need outpatient MRI versus CT study for further evaluation.CT of the chest also showed a focal nodule extending off the inferior aspect of the left thyroid lobe versus an enlarged mediastinal lymph node measuring 13.79.9 and a 4 mm hypodense nodule in the left thyroid lobe.This will need outpatient ultrasound follow-up. Orders not resulted at time of discharge: Pending orders 11/30/18 12:07 Culture,Blood [BC] Stat Procalcitonin Routine 11/30/18 17:31 Culture,Sputum with Gram Stain [RM] Routine 12/03/18 09:22 Basic Metabolic Panel AM 0400 Complete Blood Count [HEME] AM 0400 Date of Encounter: 12/03/18 Time of Encounter: 09:45 - Discharge Diagnosis (1) Sepsis Priority: Primary Status: Resolved Qualifiers: Sepsis type: sepsis due to unspecified organism Qualified Code(s): A41.9 - Sepsis, unspecified organism (2) Acute respiratory failure with hypoxia Priority: Secondary Status: Resolved (3) Acute bronchiolitis Priority: Secondary Status: Resolved Qualifiers: Bronchiolitis organism: human metapneumovirus Qualified Code(s): J21.1 - Acute bronchiolitis due to human metapneumovirus (4) Hyperlipidemia Priority: Secondary Status: Chronic Qualifiers: Hyperlipidemia type: pure hyperglyceridemia Qualified Code(s): E78.1 - Pure hyperglyceridemia (5) Pulmonary nodule Priority: Secondary Status: Acute (6) Nodule of kidney Priority: Secondary Status: Acute (7) Nodule of left lobe of thyroid gland Priority: Secondary Status: Acute (8) HTN (hypertension) Priority: Secondary Status: Chronic Qualifiers: Hypertension type: essential hypertension Qualified Code(s): I10 - Essential (primary) hypertension (9) DVT prophylaxis Priority: Secondary Status: Acute (10) Nicotine dependence Priority: Secondary Status: Chronic Qualifiers: Nicotine product type: cigarettes Substance use status: unspecified nicotine-induced disorder Qualified Code(s): F17.219 - Nicotine dependence, cigarettes, with unspecified nicotine-induced disorders Hospital course: Ms. Dalal is a 68 year old female presented with chief complaint of shortness of breath. On CT patient was found to have acute bronchiolitis. On presentation she was hypotensive and required IV fluids which she was responsive to. However in the emergency department she did have a right internal jugular CVC placed for concern of septic shock however her blood pressure record without the use of vasopressors. She was started on broad-spectrum antibiotics, nebulizers, steroids. Patient was found to have humanmetapneumovirus. Her blood cultures have been negative. Patient's respiratory status improved with this regimen. She did develop diarrhea on her third day of admission and C. difficile toxin was sent out which was negative. Patient was able to be weaned down from 3 L oxygen to saturating at 92% on room air. Today she is ambulating independently and denies cough, sputum production and reports her shortness of breath is at baseline. I did instruct patient that she would benefit from PFTs as she is a long-time smoker. Furthermore she is reports she was quit smoking. She will be going home with a albuterol nebulizer, albuterol inhaler, 4 more days of Levaquin and 3 more days of steroids. Discharge discussed with: patient, family - Time Spent with Patient Total time spent providing and/or coordinating discharge services: - Discharge Medications Prescriptions: New Albuterol Neb [AccuNeb] 1.25 mg IH Q6H #60 vial Albuterol Sulfate [Albuterol Inhaler] 0 puff IH Q4HR #1 hfa.aer.ad Nebulizer [Aeroeclipse] 1 each MC Q6H #1 each levoFLOXacin [Levaquin] 750 mg PO DAILY #4 tablet predniSONE [PredniSONE] 40 mg PO DAILY #6 tablet Continue Trazodone HCl 150 mg PO HS Ibuprofen [Motrin] 200 - 600 mg PO Q6HR PRN PRN Reason: Pain amLODIPine [Norvasc] 5 mg PO DAILY Oxycodone HCl/Acetaminophen [Percocet 5-325 mg Tablet] 1 tab PO BID PRN PRN Reason: Pain clonazePAM [Clonazepam] 0.5 mg PO HS Gabapentin 600 mg PO BID NIFEdipine [Nifedipine ER] 30 mg PO DAILY Pravastatin Sodium [Pravachol] 80 mg PO HS Home Medications: Trazodone HCl 150 mg PO HS 07/22/15 [History] Ibuprofen [Motrin] 200 - 600 mg PO Q6HR PRN 03/05/17 [History] amLODIPine [Norvasc] 5 mg PO DAILY 11/30/18 [History] Gabapentin 600 mg PO BID 12/01/18 [History] NIFEdipine [Nifedipine ER] 30 mg PO DAILY 12/01/18 [History] Oxycodone HCl/Acetaminophen [Percocet 5-325 mg Tablet] 1 tab PO BID PRN 12/01/18 [History] Pravastatin Sodium [Pravachol] 80 mg PO HS 12/01/18 [History] clonazePAM [Clonazepam] 0.5 mg PO HS 12/01/18 [History] Albuterol Neb [AccuNeb] 1.25 mg IH Q6H #60 vial 12/03/18 [Rx] Albuterol Sulfate [Albuterol Inhaler] 0 puff IH Q4HR #1 hfa.aer.ad 12/03/18 [Rx] Nebulizer [Aeroeclipse] 1 each MC Q6H #1 each 12/03/18 [Rx] levoFLOXacin [Levaquin] 750 mg PO DAILY #4 tablet 12/03/18 [Rx] predniSONE [PredniSONE] 40 mg PO DAILY #6 tablet 12/03/18 [Rx] Allergies/Adverse Reactions: Allergy/AdvReac Type Severity Reaction Status Date / Time No Known Allergies Allergy Verified 12/01/18 13:39 Date of admission: 11/30/18 17:44 Primary care physician: Joanna Degroot CNP Discharging clinician: Henry Kelley Anticipated date of discharge: 12/03/18 - Constitutional Vitals: Temp Pulse Resp BP Pulse Ox 97.3 F L 75 15 92/55 98 12/03/18 07:16 12/03/18 07:16 12/03/18 07:16 12/03/18 07:16 12/03/18 07:16 Exam: General: pleasant, without distress Cardiovascualr: Regular rate and rhythm with no murmur, absent gallops or rubs, absent pedal edema, radial pulses 2 out of 4 Lungs: clear bilaterally, on room air Abdomen: Soft nontender, nondistended positive bowel sounds, absent hepatomegaly Skin: warm and dry, absent rash, absent open wounds and nodules MSK: absent clubbing, cyanosis, joints without swelling Neuro: Cranial nerves II through XII intact, UE and LE sensation equal bilaterally, UE and LEstrength 5/5, alert oriented 3, Psych: good insight and judgment - Patient Status Disposition: Home, Self-Care Condition: Fair Functional capacity at discharge: independent ambulation Overall status at discharge: patient is progressing back to baseline - Discharge Instructions Instructions: Sepsis (DC), Pneumonia (DC) Follow Up With: Joanna Degroot CNP [Primary Care Provider] - 12/10/18 3:00 pm - Diet and Activity Activity: increase activity as tolerated Diet: advance to your usual diet <Bob Jackson - Last Filed: 12/03/18 18:29> Orders not resulted at time of discharge: Pending orders 11/30/18 12:07 Culture,Blood [BC] Stat 11/30/18 17:31 Culture,Sputum with Gram Stain [RM] Routine Date of Encounter: 12/03/18 Hospital course: Ms. Dalal is a 68 year old female - Time Spent with Patient Total time spent providing and/or coordinating discharge services: Date of admission: 11/30/18 17:44 Primary care physician: Joanna Degroot CNP - Constitutional Vitals: Temp Pulse Resp BP Pulse Ox 97.5 F L 81 16 121/66 91 12/03/18 10:00 12/03/18 10:00 12/03/18 15:44 12/03/18 10:00 12/03/18 15:44 - Attending Attestation I examined this patient and my medical decision-making was reviewed with the Resident Physician. I agree with the documented findings, disposition and treatment plan as described except to the extent set forth below.
[2018-12-03] MEDS ORDERED: levoFLOXacin 750 MG TABLET PO SCH (10:00)
[2018-12-03 10:08] LABS: BUN/Creatinine Ratio 16 (6-26); Blood Urea Nitrogen 10 mg/dL (8-23); Calcium 8.8 mg/dL (8.6-10.3); Carbon Dioxide 27 mEq/L (23-29); Chloride 103 mEq/L (98-107); Glucose 147 mg/dL (70-105); Osmolality,Calculated 290 (280-300); Sodium 139 mEq/L (136-145); eGFR For Non-African Americans > 60 (> 60)
[2018-12-03 10:10] LABS: Neutrophils # 6.5 K/mcL (1.6-8.9)
[2018-12-03 10:25] LABS: Reactive Lymphocytes Present (Not Present)
[2018-12-03 10:27] LABS: Platelet Estimate Normal (Normal)
[2018-12-03 13:26] VITALS: BP 121/66
== END 2018-12-03 17:33 | disposition home or self-care (01) | DRG 871 ==
LOC: SUATTDRO → EMEROOARM 10:51 → SUATTDRO 17:44 → 2NNU 17:44 → 3ANU 12-02 18:55
PROVIDERS: ADMIT Internal Medicine; ATTEND Student in an Organized Health Care Education/Training Program